=== PATIENT | male | born 1980 | race Caucasian/White ===

== ENCOUNTER 2022-03-18 14:20 | Emergency (ER) | payer BC, SELFPAY ==
[2022-03-18 15:08] VITALS: BP 155/99; PULSE 84; RESP 16; TEMP 36.9; O2SAT 98; BMI 25.6
--- NOTE | 2022-03-18 15:59 | ED_ITS ---
HPI - Skin/Abscess/Foreign Bdy General Chief complaint: Skin/Abscess/Foreign Body Stated complaint: Swollen L elbow Time Seen by Provider: 03/18/22 15:40 Source: patient Mode of arrival: ambulatory Limitations: no limitations History of Present Illness HPI narrative: 41-year-old male who is left-hand dominant presents with left elbow pain with redness and swelling. Patient tells me that he had a small scratch over the elbow which he noticed about a week ago but this seem fine until this morning when he woke up any notice pain with redness and swelling. No fevers or chills. Related Data Previous Rx's Medication Instructions Recorded cephalexin 500 mg capsule 500 mg PO BID #14 caps 03/18/22 doxycycline monohydrate 100 mg 100 mg PO BID #20 caps 03/18/22 capsule Allergies Allergy/AdvReac Type Severity Reaction Status Date / Time No Known Allergies Allergy Unverified 03/24/20 18:15 Review of Systems Review of Systems: Yes all other systems are reviewed and are negative Constitutional: Constitutional: Reports no additional constitutional complaints, Denies body ache(s), Denies chills, Denies fever(s), Denies headache(s) and Denies weakness Eyes: Eyes: Reports no additional eye complaints and Denies change in vision ENT: Reports system reviewed and no additional complaints, except as documented, Denies dizziness, Denies headache(s), Denies nasal congestion, Denies nasal discharge and Denies neck pain Cardiovascular: Cardiovascular: Reports no additional cardiovascular complaints, Denies chest pain, Denies leg edema and Denies dyspnea Respiratory: Respiratory: Reports no additional respiratory complaints, Denies cough and Denies dyspnea Gastrointestinal: Gastrointestinal: Reports no additional gastrointestinal complaints, Denies abdominal pain, Denies diarrhea, Denies nausea and Denies vomiting Genitourinary: Genitourinary: Denies urinary incontinence Musculoskeletal: Musculoskeletal: Reports no additional musculoskeletal complaints, Denies back pain, Reports arthralgias, Denies joint swelling, Denies neck pain, Denies numbness and Denies tingling Integumentary/Breasts: Skin/Breast: Reports system reviewed and no additional complaints, except as docu, Reports swelling, Reports erythema and Denies rash Neurologic: Reports system reviewed and no additional complaints, except as documented, Denies Abnormal speech present, Denies dizziness, Denies headache(s), Denies numbness, Denies tingling and Denies weakness PMF Past Medical History Attestation statement: The following information was validated with the patient. Source: old records reviewed and nursing notes reviewed Social History Social History Advance Directives: No Advance Directives Information Provided: Yes Physical Exam Vital Signs: Vital Signs: Last Vital Signs Temp 98.4 F 03/18/22 15:08 Pulse 84 03/18/22 15:08 Resp 16 03/18/22 15:08 BP 155/99 H 03/18/22 15:08 Pulse Ox 98 03/18/22 15:08 O2 Del Method 03/18/22 15:08 BMI result Body Mass Index 25.6 Const: General: cooperative, healthy appearing, comfortable and no acute distress Orientation/consciousness: patient oriented x3 Limitations: no limitations HEENT: Head: Yes normal to inspection Ears: hearing grossly normal bilaterally General nose exam: Normal external nose present Face and sinus: Yes normal facial exam Mouth: Normal oral and palatal mucosa present Throat: Yes posterior oropharynx normal Eyes: General: appearance normal, both eyes and all related structures Pupils: Equal, round and reactive pupils present Neck: Neck: Yes normal visual inspection Chest: Chest palpation & inspection: normal inspection of the chest Resp: Effort & Inspection: normal respiratory effort Auscultation: clear to auscultation bilaterally Cardio: Rate: regular rate Rhythm: regular rhythm Peripheral pulses: Peripheral pulses 2+ throughout GI: Inspection: Yes normal to inspection Palpation (GI): Soft to palpation and nontender Auscultation: normal bowel sounds Back/Spine/Pelvis: Thoracic/Lumbar Spine: thoracic and lumbar spine normal to inspection Skin: General skin exam: no rashes or lesions noted Neuro: General: patient oriented x3, no focal motor deficits and normal sensation to monofilament Cranial nerves: Yes Equal, round and reactive pupils present Cognition (Neuro): normal cognition Speech: No Abnormal speech present Gait exam (Neuro): Normal gait present Motor exam (neuro): 5/5 motor strength present throughout Extrem: Other: Patient has full range of motion of the elbow with no difficulty with extension or flexion. Palpable radial and ulnar pulses distally. Neurovascular intact distally to the affected area MDM - Skin/Abscess/Foreign Bdy MDM Narrative Medical decision making narrative: 41-year-old male left-hand dominant here with what appears to be septic bursitis of the left elbow. Patient has full range of motion so low concern for septic joint. I discussed the case with Anastasiya GRAFF from orthopedics. She recommended not performing any aspiration of the bursa or I&D. She did recommend placing the patient on oral antibiotics and follow-up with Orthopedics in the office. I reviewed strict return precautions with the patient in regards to septic joint. He is comfortable plan for discharge Medical Records Attestation: I reviewed the patient's medical records. Lab Data Attestation: I reviewed the patient's lab results. Discharge Plan Discharge Clinical Impression: Septic bursitis of elbow Patient Disposition: Home, Self-Care Instructions: Elbow Bursitis (ED) Additional Instructions: We spoke to the orthopedic on-call. They recommended you follow-up with them in the office the next week or 2 Call in the morning to set up an appointment Return for inability to extend the arm, 360 redness, fevers, chills Prescriptions: New cephalexin 500 mg capsule 500 mg PO BID Qty: 14 0RF doxycycline monohydrate 100 mg capsule 100 mg PO BID Qty: 20 0RF Referrals: [facility] [place] [facility] [Provider Group] - 1 week
== END 2022-03-18 16:25 | disposition home or self-care (01) ==
PROVIDERS: Emergency Provider Emergency Medicine
DX: M70.32 Other bursitis of elbow, left elbow (principal)
CPT/HCPCS: 99282

== ENCOUNTER 2022-11-03 10:11 | Emergency (ER) | payer BC, SELFPAY ==
--- NOTE | ~2022-11-03 | XR_ITS ---
EXAMINATION: XR CHEST CLINICAL INFORMATION: Chest pain COMPARISON: None available. TECHNIQUE: Frontal view of the chest was obtained. FINDINGS: Cardiac silhouette is normal in size. The lungs are well aerated. There is no lobar consolidation. No pleural effusion or pneumothorax. No gross osseous abnormality. XR/XR chest 1V IMPRESSION: No acute pulmonary pathology.
--- NOTE | 2022-11-03 10:12 | ECG_ITS ---
Test Reason : CP Blood Pressure : / mmHG Vent. Rate : 120 BPM Atrial Rate : 120 BPM P-R Int : 118 ms QRS Dur : 074 ms QT Int : 314 ms P-R-T Axes : 063 019 016 degrees QTc Int : 443 ms Sinus tachycardia Otherwise normal ECG No previous ECGs available Referred By: Generic ED Physician Electronically Signed By:Thomas Lott
[2022-11-03 10:18] VITALS: BP 156/114; PULSE 118; RESP 20; TEMP 36.8; O2SAT 100; BMI 25.8
[2022-11-03 10:37] LABS: Hematocrit 45.6 % (42.0-52.0); Hemoglobin 15.7 g/dl (14.0-18.0); Mean Corpuscular HGB Conc 34.4 g/dl (31.0-36.0); Mean Corpuscular Hemoglobin 31.8 pg (27.0-33.0); Mean Corpuscular Volume 92.5 fL (80.0-98.0); Mean Platelet Volume 11.1 fL (9.4-12.4); Platelet Count 181 X10*3/uL (160-400); Red Blood Count 4.93 X10*6/uL (4.60-5.80); Red Cell Distribution Width 11.7 % (11.0-16.0); White Blood Count 6.4 X10*3/uL (4.8-10.8)
[2022-11-03 10:38] VITALS: BP 143/103; PULSE 96; RESP 10; TEMP 36.4; O2SAT 98
--- NOTE | 2022-11-03 10:44 | ED_ITS ---
HPI - Chest Pain General Chief Complaint: Chest Pain Stated Complaint: chest pain numbness and sob Time Seen by Provider: 11/03/22 10:27 Source: patient and family (Spouse) Mode of arrival: ambulatory Limitations: no limitations History of Present Illness HPI narrative: 41-year-old male came in for evaluation of left-sided chest pain for. Patient started to have chest pain about a week ago which described as in termittent left-sided chest pain with radiation to the left with numbness to the left arm, no clear predisposing factor or exacerbating factors. Patient was working in the yard today felt chest pain after exertion associated with left arm numbness and shortness of breath them patient felt very anxious after. Stated that his job has been more stressful for the past week. Patient is a non smoker, declined family history of young or VT, no recent travel, no lower extremity swelling or tenderness, no history of PE or DVT. Related Data Previous Rx's Medication Instructions Recorded cephalexin 500 mg capsule 500 mg PO BID #14 caps 03/18/22 doxycycline monohydrate 100 mg 100 mg PO BID #20 caps 03/18/22 capsule Allergies Allergy/AdvReac Type Severity Reaction Status Date / Time No Known Allergies Allergy Unverified 03/24/20 18:15 Review of Systems Review of Systems: All other systems are reviewed and are negative Constitutional: Reports as per HPI and Reports no additional constitutional complaints Eyes: Reports as per HPI and Reports no additional eye complaints Reports system reviewed and no additional complaints, except as documented Cardiovascular: Reports as per HPI and Reports no additional cardiovascular complaints Respiratory: Reports as per HPI and Reports no additional respiratory complaints Gastrointestinal: Reports as per HPI and Reports no additional gastrointestinal complaints Genitourinary: Reports no additional female genitourinary complaints Musculoskeletal: Reports no additional musculoskeletal complaints Skin/Breast: Reports system reviewed and no additional complaints, except as docu Psychiatric: Reports no additional psychiatric complaints Endocrine: Reports no additional endocrine complaints Hematologic/Lymphatic: Reports no additional hematologic/lymphatic complaints Allergic/Immunologic: Reports no additional allergic/immunologic complaints Reports system reviewed and no additional complaints, except as documented and Reports Abnormal speech present [facility] Social History Social History Alcohol intake: current Alcohol intake frequency: a few times a week Smoked in Last 30 Days: No Use of substances other than those prescribed or required for medical reasons: No Advance Directives: No Advance Directives Information Provided: Yes Current occupational status: employed 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 Blood pressure elevated. Heart rate normal. Respiration rate normal. Temperature normal. Oxygen saturation normal. Appearance: Alert. Oriented X3. No acute distress. Head: Normal external exam. Normocephalic. Atraumatic. No Davidson signs noted. No raccoon eyes noted Eyes: PERRLA. EOMI. Conjunctiva and sclera normal. Eyelids normal. ENT: TM's Normal. Pharynx normal. Uvula midline. Moist mucous membranes. No trismus noted. No drooling noted. No muffled voice noted. Neck: Normal inspection. Neck supple. FROM. No adenopathy. Thyroid Normal. No meningeal signs. No neck mass noted. CVS: Normal heart rate and rhythm. Heart sound normal. No murmurs noted. Pulses normal throughout. Respiratory: No respiratory distress. Painless inspiration. Breath sounds normal. No wheezes/rales/rhonchi noted. Chest nontender. No accessory muscle usage noted or decreased air movement noted. Abdomen: Soft and nontender. Bowel sounds normal in all 4 quadrants. No distention noted. No organomegaly noted. No visible injury noted. Back: No CVA tenderness. Full range of motion noted. Skin: Skin warm and dry. Normal skin color. Normal skin turgor. No rashes/lesions/lacerations noted. Extremities: No lower extremity edema. Extremities exhibit normal range of motion. Extremities nontender. Neuro: Oriented X 3. Cranial nerve exam: II-XII are grossly intact No motor deficit. No sensory deficit. Reflexes normal. Medical Decision Making Medical Decision Making MDM Narrative: 41-year-old male presented with exertional chest pain for the past 7 days, the pain was significant today after having a yard work, HEART score is 2. Differential Diagnosis Differential Diagnoses: The differential diagnosis associated with the presentation includes (ACS, pneumonia, pneumothorax, PE.) Lab Data MDM Lab Attestation statement: I reviewed the patient's lab results. 11/03/22 10:32 11/03/22 10:32 Labs: Lab Results 11/03/22 11/03/22 11/03/22 Range/Units 10:32 10:32 10:32 WBC 6.4 (4.8-10.8) X10*3/uL RBC 4.93 (4.60-5.80) X10*6/uL Hgb 15.7 (14.0-18.0) g/dl Hct 45.6 (42.0-52.0) % MCV 92.5 (80.0-98.0) fL MCH 31.8 (27.0-33.0) pg MCHC 34.4 (31.0-36.0) g/dl RDW 11.7 (11.0-16.0) % Plt Count 181 (160-400) X10*3/uL MPV 11.1 (9.4-12.4) fL Absolute Nucleated RBC 0.000 (0.0-0.012) X10*3/uL Nucleated RBC % (auto) 0.0 (0.0-0.2) /100WBC D-Dimer High Sensitivty NG/ML Sodium 141 (135-145) mmol/L Potassium 4.7 (3.3-5.1) mmol/L Chloride 102 (96-108) mmol/L Carbon Dioxide 29 (22-29) mmol/L Anion Gap 15 (12-20) BUN 16 (9-16) mg/dL Creatinine 1.01 (0.5-1.4) mg/dL Estim Creat Clear Calc 100.3 Estimated GFR > 60 Random Glucose 107 (60-115) mg/dL Calcium 10.1 (8.4-10.2) mg/dL Troponin I High Sens < 2.7 (<3.5-35.0) ng/L 11/03/22 11/03/22 Range/Units 12:01 12:16 WBC (4.8-10.8) X10*3/uL RBC (4.60-5.80) X10*6/uL Hgb (14.0-18.0) g/dl Hct (42.0-52.0) % MCV (80.0-98.0) fL MCH (27.0-33.0) pg MCHC (31.0-36.0) g/dl RDW (11.0-16.0) % Plt Count (160-400) X10*3/uL MPV (9.4-12.4) fL Absolute Nucleated RBC (0.0-0.012) X10*3/uL Nucleated RBC % (auto) (0.0-0.2) /100WBC D-Dimer High Sensitivty < 150 NG/ML Sodium (135-145) mmol/L Potassium (3.3-5.1) mmol/L Chloride (96-108) mmol/L Carbon Dioxide (22-29) mmol/L Anion Gap (12-20) BUN (9-16) mg/dL Creatinine (0.5-1.4) mg/dL Estim Creat Clear Calc Estimated GFR Random Glucose (60-115) mg/dL Calcium (8.4-10.2) mg/dL Troponin I High Sens < 2.7 (<3.5-35.0) ng/L Independent Interpretation I performed an independent interpretation of an: EKG and Plain X-Ray (No acute intrathoracic pathology.) Interpretation: Sinus tachycardia at 120 beats per minutes, normal intervals, no ST-T changes. Radiology Impression Discussion of test interpretation with radiology: I have reviewed the radiologist's reading. Discharge Plan Discharge Clinical Impression: Chest pain Patient Disposition: Home, Self-Care Instructions: Chest Pain (ED) Prescriptions: No Action cephalexin 500 mg capsule 500 mg PO BID Qty: 14 0RF doxycycline monohydrate 100 mg capsule 100 mg PO BID Qty: 20 0RF Referrals: Abbe Sanchez MD [Physician] -
[2022-11-03 10:51] LABS: Anion Gap 15 (12-20); Blood Urea Nitrogen 16 mg/dL (9-16); Calcium 10.1 mg/dL (8.4-10.2); Carbon Dioxide 29 mmol/L (22-29); Chloride 102 mmol/L (96-108); Creatinine Clr Calc Pharmacy 100.3; Estimated Glomerular Filt Rate > 60; Glucose Random 107 mg/dL (60-115); Potassium 4.7 mmol/L (3.3-5.1); Sodium 141 mmol/L (135-145)
[2022-11-03 11:09] LABS: Troponin-I High Sensitivity < 2.7 ng/L (<3.5-35.0)
[2022-11-03 11:31] VITALS: BP 133/97; PULSE 80; RESP 13; TEMP 36.4; O2SAT 99
[2022-11-03 11:34] VITALS: PULSE 78
[2022-11-03 12:02] VITALS: BP 151/100; PULSE 82; RESP 13; TEMP 36.4; O2SAT 99
[2022-11-03 12:40] LABS: D Dimer High Sensitivity < 150 NG/ML
== END 2022-11-03 13:35 | disposition home or self-care (01) ==
PROVIDERS: Emergency Provider Emergency Medicine
DX: R07.9 Chest pain, unspecified (principal); R00.0 Tachycardia, unspecified; Z79.899 Other long term (current) drug therapy
CPT/HCPCS: 36415; 71045; 80048; 84484; 85027; 85379; 93005; 99283; 99285

== ENCOUNTER → 2022-12-12 13:51 | Outpatient (BNVA) | payer BC, SELFPAY | PROVIDERS: PCP Nurse Practitioner Family; Referring Provider Nurse Practitioner Family; Visit Provider Internal Medicine Cardiovascular Disease | DX: R07.9 Chest pain, unspecified (principal) | CPT/HCPCS: 93005 ==

== ENCOUNTER 2023-01-11 06:30 | Outpatient (REF) | payer BC, SELFPAY | END 2023-01-11 06:31 | disposition home or self-care (01) | LOC: HO.LAB 06:30 | PROVIDERS: PCP Nurse Practitioner Family; Visit Provider Nurse Practitioner Family | DX: Z76.89 Persons encountering health services in other specified circumstances (principal); Z20.2 Contact with and (suspected) exposure to infections with a predominantly sexual mode of transmission; E78.1 Pure hyperglyceridemia; R73.01 Impaired fasting glucose; R03.0 Elevated blood-pressure reading, without diagnosis of hypertension | CPT/HCPCS: 36415; 80053; 80061; 82306; 82607; 82746; 84443; 85025 ==

== ENCOUNTER → 2023-01-14 08:15 | Outpatient (REF) | payer BC, SELFPAY ==
--- NOTE | 2023-01-14 08:17 | CA_ITS ---
Acquisition Time: 2023-01-14 08:56:29 Total Exercise Time: 00:09:01 Test Indications: CP Medications: SEE H Protocol: UMM Max HR: 169 BPM 94% of Pred: 179 BPM Max BP: 184/084 mmHG Max Work Load: 10.1 METS Exercise stress test exercise 9 min 1 sec of Umm protocol achieivntg 94% MPHR, without anginal symptoms, without arrhythmias, with normotensive response to exericse, without EKG changes. Test reviewed with Dr. Teixeira. Referred By: Thomas Lott Overread By: LAINA TEIXEIRA
== END ==
LOC: HO.CARD 08:15
PROVIDERS: PCP Nurse Practitioner Family; Visit Provider Internal Medicine Cardiovascular Disease
DX: R07.9 Chest pain, unspecified (principal)
CPT/HCPCS: 93017

== ENCOUNTER → 2023-01-14 08:17 | Outpatient (BNV) | payer BC, SELFPAY | PROVIDERS: PCP Nurse Practitioner Family; Visit Provider Internal Medicine | DX: R07.9 Chest pain, unspecified (principal) | CPT/HCPCS: 93016; 93018 ==

== ENCOUNTER 2023-01-22 10:47 | Outpatient (AMB) | payer BC, SELFPAY ==
[2023-01-22 10:52] VITALS: BP 130/72; PULSE 72; O2SAT 99; BMI 27.0
--- NOTE | 2023-01-22 10:52 | MHC.PC.OV ---
Vital Signs 01/22/23 10:52 Height 5 ft 10 in Weight 188 lb BMI 27.0 BP 130/72 Blood Pressure Location Lt brachial Position Sitting Pulse 72 Pulse Source Pulse Oximeter Temp Source Skin Pulse Oximetry (%) 99 Oxygen Delivery Method Room Air Intake Visit Reasons: pe Intake Note: Patient is here today for a physical. 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 Medical history significant for gout-diet controlled, overweight, elevated fasting glucose, hypertriglyceridemia. Recent blood work results reviewed with the patient as well. Patient will call for an eye exam. Patient would like to hold off on tetanus vaccine. Patient denies shortness of breath or chest pain. 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 1. Little interest or pleasure in doing things: not at all 2. Feeling down, depressed, or hopeless: not at all 3. Trouble falling or staying asleep, or sleeping too much: not at all 4. Feeling tired or having little energy: not at all 5. Poor appetite or overeating: not at all 6. Feeling bad about yourself - or that you are a failure or have let yourself or your family down: not at all 7. Trouble concentrating on things, such as reading the newspaper or watching television: not at all 8. Moving or speaking so slowly that other people could have noticed. Or the opposite - being so fidgety or restless that you have been moving around a lot more than usual: not at all 9. Thoughts that you would be better off or of hurting yourself in some way: not at all Total score: 0 Depression Screening Interpretation: Negative 06647 - PHQ-9 Billing: Yes Source: Developed by Drs. Cesar Walker, Roopa Eid, Abraham Ocampo and colleagues, with an educational paula from [email or web address]. Thrive Questionnaire Date Thrive assessed: 01/22/23 I am a: Patient What is your living situation today?: I have a steady place to live Within the past 12 months, did the food you bought not last and you didn't have the money to get more?: Never true Within the past 12 months, did you worry whether your food would run out before you got money to buy more?: Never true Do you have trouble paying for medicines?: No Do you have trouble getting transportation to medical appointments?: No Do you have trouble paying your heating and electricity bill?: No Do you have trouble taking care of your child, family member or friend?: No Do you have trouble with day-to-day activities such as bathing, preparing meals, shopping, managing finances, etc.?: No Are you currently unemployed and looking for a job?: No Are you interested in more education?: No Currently or been in a relationship where the following occur: no concerns reported AUDIT C Alcohol Use Questionnaire (AUDIT-C) 1. How often do you have a drink containing alcohol?: 2-3 times a week 2. How many drinks containing alcohol do you have on a typical day when you are drinking?: 1 or 2 3. How often do you have six or more drinks on one occasion?: Never Total Score: 3 Score Reviewed/Action Taken: No TOMMY-7 AMB Questionnaire TOMMY-7 Date TOMMY - 7 assessed: 11/21/22 Feeling nervous, anxious, or on edge: 0 = Not at all Not being able to stop or control worryin = Not at all Worrying too much about different things: 0 = Not at all Trouble relaxin = Not at all Being so restless that it is hard to sit still: 0 = Not at all Becoming easily annoyed or irritable: 0 = Not at all Feeling afraid as if something awful might happen: 0 = Not at all Total TOMMY-7 score (0-4 normal; 5-9 mild; 10-14 moderate; 15-21 severe): 0 Source: Developed by Drs. Cesar Walker, Roopa Eid, Abraham Ocampo and colleagues, with an educational paula from [email or web address]. TOMMY-7 Assessment Billing TOMMY-7 Assessment Tool: TOMMY-7 Assessment 72245 Review of Systems Const Denies body aches, Denies chills, Denies fever(s) and Denies headache(s) Eyes Denies change in vision ENT Denies dizziness, Denies otalgia, Denies headache(s), Denies nasal discharge, Denies sinus pain and Denies sore throat Card Denies chest pain, Denies edema, Denies lightheadedness and Denies dyspnea Resp Denies cough and Denies dyspnea GI Denies constipation, Denies diarrhea, Denies nausea and Denies vomiting Denies dysuria Musc Denies myalgias, Denies numbness and Denies tingling Skin/Breast Denies rash Neuro Denies dizziness, Denies headache(s), Denies numbness and Denies tingling Physical exam (Primary Care) Vital Signs: Last Vital Signs Pulse 72 01/22/23 10:52 BP 130/72 01/22/23 10:52 Pulse Ox 99 01/22/23 10:52 Oxygen Delivery Method Room Air 01/22/23 10:52 BMI result Body Mass Index 27.0 Tobacco/Smoking Status: Tobacco use Status Tobacco use date assessed 01/22/23 01/22/23 10:53 Patient Tobacco Use Status Former Tobacco user 01/22/23 10:53 PHQ-9: PHQ-9 Score PHQ-9: Total score 0 01/22/23 11:01 Depression Screening Interpretation: Negative Thrive Assessment: Date of Thrive Assessment Date Thrive assessed 01/22/23 01/22/23 10:53 Currently or been in a relationship where the following occur: no concerns reported Const General: cooperative and no acute distress Orientation/consciousness: patient oriented x3 HENMT Head: Yes normocephalic and Yes atraumatic Ears: TM's normal bilaterally Face and sinus: Yes sinuses nontender Mouth: oropharynx normal and moist mucous membranes Throat: Yes posterior oropharynx normal Eyes General: appearance normal, both eyes and all related structures Pupils: Equal, round and reactive pupils present EOM: EOMs intact bilaterally Neck Neck: Yes normal visual inspection, Yes full ROM and Yes no lymphadenopathy Thyroid: Thyroid normal Resp Effort & Inspection: normal respiratory effort and able to speak in complete sentences Auscultation: clear to auscultation bilaterally, no crackles, no rales, no rhonchi and no wheezes Cardio Rate: regular rate Rhythm: regular rhythm Heart sounds: S1 normal heart sound present, S2 normal heart sound present and no murmurs GI Palpation (GI): Soft to palpation, not firm, nontender, no guarding, not rigid and no hepatosplenomegaly Auscultation: normal bowel sounds General: No CVA tenderness Back/Spine/Pelvis Back: No CVA tenderness Skin General skin exam: no rashes or lesions noted Neuro General: patient oriented x3 Cranial nerves: Yes Equal, round and reactive pupils present Gait exam (Neuro): Normal gait present Extrem General: Yes full ROM and No edema Assessment and Plan Assessment & Plan (1) Hypertriglyceridemia: Code(s): E78.1 - Pure hyperglyceridemia Plan: Triglycerides 239 01/2023 Encouraged low-cholesterol and low-carbohydrate diet Will recheck in 3 months (2) Elevated fasting glucose: Code(s): R73.01 - Impaired fasting glucose Plan: Fasting glucose 113 01/2023 Patient has order for A1c (3) Overweight (BMI 25.0-29.9): Code(s): E66.3 - Overweight Plan: Healthy food choices and exercise as tolerated (4) Adult general medical exam: Code(s): Z00.00 - Encounter for general adult medical examination without abnormal findings Plan: Repeat in 1 year Orders: Orders Lipid Panel 3 Months E78.1 - Pure hyperglyceridemia Coding Level of Care Code Est Pt Prev Care 40-64y(98041) Diagnoses Hypertriglyceridemia E78.1 Elevated fasting glucose R73.01 Overweight (BMI 25.0-29.9) E66.3 Adult general medical exam Z00.00 Additional Codes TOMMY-7 Assessment Billing - TOMMY-7 Assessment Tool: TOMMY-7 Assessment 59029 ([id number])
== END 2023-01-22 11:27 | disposition home or self-care (01) ==
PROVIDERS: PCP Nurse Practitioner Family; Visit Provider Nurse Practitioner Family
DX: E78.1 Pure hyperglyceridemia (principal); R73.01 Impaired fasting glucose; E66.3 Overweight; Z00.00 Encounter for general adult medical examination without abnormal findings
CPT/HCPCS: 99396

== ENCOUNTER 2023-06-05 06:45 | Outpatient (REF) | payer BC, SELFPAY ==
[2023-06-05 07:43] LABS: Estimated Average Glucose 105 mg/dL; Hemoglobin A1c % 5.3 % (<6.0)
[2023-06-05 08:10] LABS: Cholesterol 232 mg/dL (<200); HDL Cholesterol 92 mg/dL (>40); LDL Cholesterol Calculated 122 mg/dL (<100); Triglycerides 93 mg/dL (<150); Uric Acid 7.5 mg/dL (3.4-7.0)
== END 2023-06-05 06:46 | disposition home or self-care (01) ==
LOC: HO.LAB 06:45
PROVIDERS: PCP Nurse Practitioner Family; Visit Provider Nurse Practitioner Family
DX: R73.01 Impaired fasting glucose (principal); E78.1 Pure hyperglyceridemia; M10.9 Gout, unspecified
CPT/HCPCS: 36415; 80061; 83036; 84550

== ENCOUNTER 2023-08-06 10:28 | Outpatient (AMB) | payer BC, SELFPAY ==
[2023-08-06 10:32] VITALS: BP 126/80; PULSE 75; O2SAT 100; BMI 26.7
--- NOTE | 2023-08-06 10:32 | A.OFFPC_ITS ---
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 Accompanied by: Self / Same As Patient Allergies No Known Allergies Allergy (Verified 08/06/23 10:59) Medication List - Last Reconciled 08/06/23 by Zan Gonzales MD indomethacin 50 mg PO TID PRN prednisone 10 mg PO DAILY Tobacco use date assessed: 08/06/23 Dental Screening Dental Screen Date: 08/06/23 Did you have a dental visit in the last 12 months?: Yes Did you have a dental problem in the last 6 months where you did not have access to dental care?: No Was dental information given to patient?: Patient has dentist HPI GOUT flare up HPI Details 42-year-old male presents to the office for a sick visit. His primary care provider is not available. Patient gives history of chronic gout for which he was taking allopurinol on a regular basis. Two years ago he changed his dietary habits and had not to use allopurinol since then. Last , patient had a flare-up of acute gout. It was very painful and lasted for 4 weeks. He got relief with prednisone. In the past few days he is having tingling sensation in the left foot. He has no medication remaining at home and would like to have a refill on the same. 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 1. Little interest or pleasure in doing things: not at all 2. Feeling down, depressed, or hopeless: not at all 3. Trouble falling or staying asleep, or sleeping too much: not at all 4. Feeling tired or having little energy: not at all 5. Poor appetite or overeating: not at all 6. Feeling bad about yourself - or that you are a failure or have let yourself or your family down: not at all 7. Trouble concentrating on things, such as reading the newspaper or watching television: not at all 8. Moving or speaking so slowly that other people could have noticed. Or the opposite - being so fidgety or restless that you have been moving around a lot more than usual: not at all 9. Thoughts that you would be better off or of hurting yourself in some way: not at all Total score: 0 Depression Screening Interpretation: Negative Depression Screening Done: Yes [id number] - PHQ-9 Billing: Yes Source: Developed by Drs. Cesar Walker, Roopa Eid, Abraham Ocampo and colleagues, with an educational paula from [employer]. Thrive Questionnaire Date Thrive assessed: 08/06/23 I am a: Patient What is your living situation today?: I have a steady place to live Within the past 12 months, did the food you bought not last and you didn't have the money to get more?: Never true Within the past 12 months, did you worry whether your food would run out before you got money to buy more?: Never true Do you have trouble paying for medicines?: No Do you have trouble getting transportation to medical appointments?: No Do you have trouble paying your heating and electricity bill?: No Do you have trouble taking care of your child, family member or friend?: No Do you have trouble with day-to-day activities such as bathing, preparing meals, shopping, managing finances, etc.?: No Are you currently unemployed and looking for a job?: No Are you interested in more education?: No Please select the resources that you would like help with: None THRIVE Score: 0 AUDIT C Alcohol Use Questionnaire (AUDIT-C) 1. How often do you have a drink containing alcohol?: 2-3 times a week 2. How many drinks containing alcohol do you have on a typical day when you are drinking?: 1 or 2 3. How often do you have six or more drinks on one occasion?: Never Total Score: 3 Score Reviewed/Action Taken: No TOMMY-7 AMB Questionnaire TOMMY-7 Date TOMMY - 7 assessed: 08/06/23 Feeling nervous, anxious, or on edge: 0 = Not at all Not being able to stop or control worryin = Not at all Worrying too much about different things: 0 = Not at all Trouble relaxin = Not at all Being so restless that it is hard to sit still: 0 = Not at all Becoming easily annoyed or irritable: 0 = Not at all Feeling afraid as if something awful might happen: 0 = Not at all Total TOMMY-7 score (0-4 normal; 5-9 mild; 10-14 moderate; 15-21 severe): 0 Source: Developed by Drs. Cesar Walker, Roopa Eid, Abraham Ocampo and colleagues, with an educational paula from [employer]. Physical exam (Primary Care) Vital Signs: Last Vital Signs Pulse 75 08/06/23 10:32 BP 126/80 08/06/23 10:32 Pulse Ox 100 08/06/23 10:32 Oxygen Delivery Method Room Air 08/06/23 10:32 BMI result Body Mass Index 26.7 Tobacco/Smoking Status: Tobacco use Status Tobacco use date assessed 08/06/23 08/06/23 10:37 Patient Tobacco Use Status Former Tobacco user 08/06/23 10:37 PHQ-9: PHQ-9 Score PHQ-9: Total score 0 08/06/23 10:37 Depression Screening Interpretation: Negative Thrive Assessment: Date of Thrive Assessment Date Thrive assessed 08/06/23 08/06/23 10:37 Extrem Other: Left foot: Minimal discomfort at the MTP joint. No overlying erythema. Right foot: Great toe: No visible erythema. No tenderness. Assessment and Plan Assessment & Plan (1) Gout: Comment: stable with diet Code(s): M10.9 - Gout, unspecified Plan: Allopurinol and prednisone called in. Patient was instructed to take the prednisone should the pain symptoms begin or get worse. Allopurinol to be started after complete recovery from the acute attack. Coding Level of Care Code Est Pt Level 4 (24352) Diagnoses Gout M10.9
== END 2023-08-06 10:49 | disposition home or self-care (01) ==
PROVIDERS: PCP Nurse Practitioner Family; Visit Provider Internal Medicine
DX: M10.9 Gout, unspecified (principal)
CPT/HCPCS: 99214

== ENCOUNTER 2023-10-10 12:39 | Outpatient (AMB) | payer BC, SELFPAY ==
[2023-10-10 12:41] VITALS: BP 118/72; PULSE 92; O2SAT 98; BMI 27.0
--- NOTE | 2023-10-10 12:41 | MHC.PC.OV ---
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 Allergies No Known Allergies Allergy (Verified 10/10/23 12:41) Medication List - Last Reconciled 10/10/23 by Charito Monte MD allopurinol 300 mg PO DAILY ascorbate calcium (vitamin C) 1 g PO DAILY prednisone 10 mg PO DAILY Tobacco use date assessed: 10/10/23 Dental Screening Dental Screen Date: 08/06/23 Did you have a dental visit in the last 12 months?: Yes Did you have a dental problem in the last 6 months where you did not have access to dental care?: No Was dental information given to patient?: Patient has dentist HPI Transfer care/ Gout Follow up HPI Details 42-year-old overweight male with a history of gout hypercholesterolemia coming in for the 1st time. Patient was seen by my colleague in July 2023 for flare-up of the gout talk allopurinol and has change diet and has not use the medication. Patient was placed back on allopurinol. R big toe problem - but this time L big toe. meat eater and so knows triggers PFSH Medical History (Updated 10/10/23 @ 13:17 by Charito Monte MD) Elevated blood pressure reading Hypertriglyceridemia Encounter to establish care Septic olecranon bursitis of left elbow Surgical History No pertinent past surgical history Family History Mother Hypertension Father Hypertension Diabetes Social History (Updated 10/10/23 @ 13:18 by Charito Monte MD) Alcohol intake: current Alcohol intake frequency: a few times a week Comment: 3 x a week 2-3drinks Patient Tobacco Use Status: Former Tobacco user Quit Date: 2020 Years Smoked: 10 +/- quit 2020- 10 years 1/2 pack a day service: No Current occupational status: employed 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 How often do you have a drink containing alcohol?: 2-3 times a week 2. How many drinks containing alcohol do you have on a typical day when you are drinking?: 1 or 2 3. How often do you have six or more drinks on one occasion?: Never Total Score: 3 Score Reviewed/Action Taken: No TOMMY-7 AMB Questionnaire TOMMY-7 Date TOMMY - 7 assessed: 08/06/23 Source: Developed by Drs. Cesar Walker, Roopa Eid, Abraham Ocampo and colleagues, with an educational paula from [employer]. Physical exam (Primary Care) Vital Signs: Last Vital Signs Pulse 92 10/10/23 12:41 BP 118/72 10/10/23 12:41 Pulse Ox 98 10/10/23 12:41 Oxygen Delivery Method Room Air 10/10/23 12:41 BMI result Body Mass Index 27.0 Tobacco/Smoking Status: Tobacco use Status Tobacco use date assessed 10/10/23 10/10/23 12:42 Patient Tobacco Use Status Former Tobacco user 10/10/23 13:18 Thrive Assessment: Date of Thrive Assessment Date Thrive assessed 08/06/23 10/10/23 12:42 Const General: alert; No acute distress Eyes Conjunctivae: conjunctivae normal Resp Auscultation: clear to auscultation bilaterally Cardio Rate: regular rate Rhythm: regular rhythm GI Inspection: Yes normal to inspection Extrem General: Yes normal to inspection and No edema Immunizations tetanus-diphtheria toxoids-Td 2 Lf unit-2 Lf unit/0.5 mL IM suspension Performing Provider: Charito Monte MD 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 0.5 mL IM Left Deltoid 0.5 mL [id number] 08/17/24 [address]-2 [employer] VIS Given Date VIS Provided VIS Publication Date 10/10/23 Single Vaccine 21 Eligibility Eligibility Date Funding Source Not VFC Eligible 10/10/23 State funds Assessment and Plan Assessment & Plan (1) Overweight (BMI 25.0-29.9): Code(s): E66.3 - Overweight Plan: Diet and exercise (2) Gout: Comment: stable with diet Code(s): M10.9 - Gout, unspecified Plan: Keep well hydrated, low purine diet (3) Elevated fasting glucose: Code(s): R73.01 - Impaired fasting glucose Plan: Decrease the amount of carbohydrate intake, pasta, bread, rice and potatoes are all sugar and that is aside from all the sweet stuff, remember that fruits are good but they are Sweet also. Orders: Orders Complete Blood Count Auto Diff Today R73.01 - Impaired fasting glucose Lipid Panel Today E78.00 - Pure hypercholesterolemia, unspecified, R73.01 - Impaired fasting glucose Vitamin B12 and Folate Today R73.01 - Impaired fasting glucose Td State Immunization Today Z23 - Encounter for immunization Comprehensive Met. Panel Today R73.01 - Impaired fasting glucose Uric Acid Today R73.01 - Impaired fasting glucose Free T4 (Free Thyroxine) Today R73.01 - Impaired fasting glucose Thyroid Stimulating Hormone Today R73.01 - Impaired fasting glucose Medications: New tetanus-diphtheria toxoids-Td 0.5 mL IM ONCE 0.5 mL 0RF Z23 - Encounter for immunization Refilled allopurinol 300 mg PO DAILY 90 tabs 3RF R73.01 - Impaired fasting glucose prednisone Take 3 tablets for 3 days then, Take 2 tablets 3 days then, Take 1 tablet 3 days and stop 10 mg PO DAILY 18 tabs 0RF M10.9 - Gout, unspecified Coding Level of Care Code Est Pt Level 4 (46121) Diagnoses Overweight (BMI 25.0-29.9) E66.3 Gout M10.9 Elevated fasting glucose R73.01
== END 2023-10-10 13:40 | disposition home or self-care (01) ==
PROVIDERS: PCP Nurse Practitioner Family; Visit Provider Internal Medicine
DX: E66.3 Overweight (principal); M10.9 Gout, unspecified; R73.01 Impaired fasting glucose; Z23 Encounter for immunization
CPT/HCPCS: 90471; 90714; 99214

== ENCOUNTER 2023-10-11 06:35 | Outpatient (REF) | payer BC, SELFPAY ==
[2023-10-11 06:43] LABS: MANUAL DIFF FLAG NO
[2023-10-11 07:02] LABS: Basophils Percent Auto 0.6 % (0-2); Eosinophils Absolute Auto 0.1 X10*3/uL (0.0-0.4); Eosinophils Percent Auto 1.7 % (0-4); Hematocrit 46.7 % (42.0-52.0); Hemoglobin 15.6 g/dl (14.0-18.0); Imm Gran Abs Auto 0.02 X10*3/uL (0.00-0.03); Imm Gran Pct Auto 0.3 % (0.0-0.4); Lymphocytes Absolute Auto 2.9 X10*3/uL (1.2-4.9); Lymphocytes Percent Auto 43.5 % (20-40); Mean Corpuscular HGB Conc 33.4 g/dl (31.0-36.0); Mean Corpuscular Hemoglobin 31.8 pg (27.0-33.0); Mean Corpuscular Volume 95.1 fL (80.0-98.0); Mean Platelet Volume 10.9 fL (9.4-12.4); Monocytes Absolute Auto 0.5 X10*3/uL (0.1-1.2); Monocytes Percent Auto 7.2 % (2-11); Neutrophils Absolute Auto 3.1 x10*3/uL (2.0-8.3); Neutrophils Percent Auto 46.7 % (45-73); Platelet Count 226 X10*3/uL (160-400); Red Blood Count 4.91 X10*6/uL (4.60-5.80); Red Cell Distribution Width 12.1 % (11.0-16.0); White Blood Count 6.6 X10*3/uL (4.8-10.8)
[2023-10-11 07:25] LABS: Alanine Aminotransferase 32 U/L (0-40); Albumin Level 4.4 g/dL (3.5-5.0); Alkaline Phosphatase 41 U/L (39-117); Anion Gap 14 (12-20); Aspartate Amino Transferase 17 U/L (5-37); Bilirubin Total 0.3 mg/dL (0.0-1.0); Blood Urea Nitrogen 19 mg/dL (9-16); Calcium 9.6 mg/dL (8.4-10.2); Carbon Dioxide 31 mmol/L (22-29); Chloride 102 mmol/L (96-108); Cholesterol 209 mg/dL (<200); Estimated Glomerular Filt Rate > 60; Glucose Random 99 mg/dL (60-115); HDL Cholesterol 66 mg/dL (>40); LDL Cholesterol Calculated 74 mg/dL (<100); Potassium 4.9 mmol/L (3.3-5.1); Sodium 142 mmol/L (135-145); Total Protein 7.3 g/dL (6.5-8.0); Triglycerides 347 mg/dL (<150); Uric Acid 5.3 mg/dL (3.4-7.0)
[2023-10-11 07:43] LABS: Free T4 (Free Thyroxine) 1.13 ng/dL (0.71-1.85); Thyroid Stimulating Hormone 1.91 uIU/mL (0.32-4.0)
[2023-10-11 07:51] LABS: Vitamin B12 921 pg/mL (200-900)
== END 2023-10-11 06:36 | disposition home or self-care (01) ==
LOC: HO.LAB 06:35
PROVIDERS: PCP Internal Medicine; Visit Provider Internal Medicine
DX: E78.00 Pure hypercholesterolemia, unspecified (principal); R73.01 Impaired fasting glucose
CPT/HCPCS: 36415; 80053; 80061; 82607; 82746; 84439; 84443; 84550; 85025

== ENCOUNTER 2023-12-03 08:07 | Outpatient (AMB) | payer BC, SELFPAY ==
--- NOTE | 2023-12-03 08:40 | MHC.PC.OV ---
Vital Signs 12/03/23 08:42 Height 5 ft 10 in Weight 189 lb 6 oz BMI 27.2 BP 130/70 Blood Pressure Location Lt brachial Position Sitting Pulse 65 Pulse Source Pulse Oximeter Pulse Oximetry (%) 98 Oxygen Delivery Method Room Air Intake Visit Reasons: Follow up from return of Gout flare up Intake Note: Patient is here to follow up on Gout flare up. 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 10/26/2023 last seen [facility] Medical History (Updated 12/03/23 @ 09:08 by Charito Monte MD) Hypertriglyceridemia Elevated blood pressure reading Encounter to establish care Septic olecranon bursitis of left elbow Surgical History No pertinent past surgical history Family History (Updated 12/03/23 @ 08:41 by NATASHA Gupta) Mother Hypertension Father Hypertension Diabetes Social History Alcohol intake: current Alcohol intake frequency: a few times a week Comment: 3 x a week 2-3drinks Patient Tobacco Use Status: Former Tobacco user Quit Date: 2020 Years Smoked: 10 +/- quit 2020- 10 years 1/2 pack a day e-Cigarette/Vaping Use: Never Used Second Hand Smoke Exposure: Yes service: No Current occupational status: employed 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 Cesar Walker, Roopa Eid, Abraham Ocampo and colleagues, with an educational paula from [employer]. Physical exam (Primary Care) Vital Signs: Last Vital Signs Pulse 65 12/03/23 08:42 BP 130/70 12/03/23 08:42 Pulse Ox 98 05/28/24 08:42 Oxygen Delivery Method Room Air 12/03/23 08:42 BMI result Body Mass Index 27.2 Tobacco/Smoking Status: Tobacco use Status Tobacco use date assessed 12/03/23 12/03/23 08:46 Patient Tobacco Use Status Former Tobacco user 12/03/23 08:46 e-Cigarette/Vaping Use Never Used 12/03/23 08:46 Thrive Assessment: Date of Thrive Assessment Date Thrive assessed 08/06/23 12/03/23 08:46 Const General: alert; No acute distress Eyes Conjunctivae: conjunctivae normal Resp Auscultation: clear to auscultation bilaterally Cardio Rate: regular rate Rhythm: regular rhythm GI Inspection: Yes normal to inspection Extrem General: Yes normal to inspection and No edema Assessment and Plan Assessment & Plan (1) Overweight (BMI 25.0-29.9): Code(s): E66.3 - Overweight Plan: Diet and exercise (2) Gout: Comment: stable with diet Code(s): M10.9 - Gout, unspecified Plan: Low purine diet and keep well hydrated on allopurinol 300 mg once a day and colchicine. Last uric acid normal since patient has been having a lot of the pain even with allopurinol their colchicine has been prescribed advised to get the x-ray done and will follow-up on this. (3) Elevated fasting glucose: Code(s): R73.01 - Impaired fasting glucose Plan: Decrease the amount of carbohydrate intake, pasta, bread, rice and potatoes are all sugar and that is aside from all the sweet stuff, remember that fruits are good but they are Sweet also. (4) Hypertriglyceridemia: Code(s): E78.1 - Pure hyperglyceridemia Plan: Avoid fried foods, chicken skin, eggs, butter margarine, pastries and meat. Be it pork or beef they have a lot of cholesterol LDL goal of less than 130 and triglyceride of less than 150. Patient declines any new medication. (5) Great toe pain: Comment: left Code(s): M79.676 - Pain in unspecified toe(s) Plan: X-ray of the toes requested Orders: Orders XR toe LT min 2V Today M79.676 - Pain in unspecified toe(s) Medications: Refilled prednisone Take 3 tablets for 3 days then, Take 2 tablets 3 days then, Take 1 tablet 3 days and stop 10 mg PO DAILY 18 tabs 0RF M10.9 - Gout, unspecified Coding Level of Care Code Est Pt Level 4 (51809) Diagnoses Overweight (BMI 25.0-29.9) E66.3 Gout M10.9 Elevated fasting glucose R73.01 Hypertriglyceridemia E78.1 Great toe pain M79.676
[2023-12-03 08:42] VITALS: BP 130/70; PULSE 65; O2SAT 98; BMI 27.2
== END 2023-12-03 09:13 | disposition home or self-care (01) ==
PROVIDERS: PCP Internal Medicine; Visit Provider Internal Medicine
DX: E66.3 Overweight (principal); M10.9 Gout, unspecified; R73.01 Impaired fasting glucose; E78.1 Pure hyperglyceridemia; M79.676 Pain in unspecified toe(s)
CPT/HCPCS: 99214

== ENCOUNTER 2023-12-03 09:21 | Outpatient (REF) | payer BC, SELFPAY ==
--- NOTE | ~2023-12-03 | XR_ITS ---
EXAMINATION: XR TOES, LEFT CLINICAL INFORMATION: Pain in unspecified toe. COMPARISON: None available. TECHNIQUE: 3 views of the left great toe were obtained. FINDINGS: Radiopaque marker placed by technologist to indicate the area of concern as indicated by the patient along the medial aspect of the first metatarsophalangeal joint. 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 Mild degenerative changes in the first tarsometatarsal joint. IP joint of the great toe is preserved. 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
== END 2023-12-03 09:22 | disposition home or self-care (01) ==
LOC: HO.XRAY 09:21
PROVIDERS: PCP Internal Medicine; Visit Provider Internal Medicine
DX: M79.672 Pain in left foot (principal)
CPT/HCPCS: 73660

== ENCOUNTER 2024-02-26 08:14 | Outpatient (AMB) | payer BC, SELFPAY ==
[2024-02-26 08:17] VITALS: BP 124/88; PULSE 78; O2SAT 97; BMI 27.0
--- NOTE | 2024-02-26 08:17 | A.OFFPC_ITS ---
Vital Signs 02/26/24 08:17 Height 5 ft 10 in Weight 188 lb BMI 27.0 BP 124/88 Blood Pressure Location Lt brachial Position Sitting Pulse 78 Pulse Source Pulse Oximeter Pulse Oximetry (%) 97 Oxygen Delivery Method Room Air Intake Visit Reasons: PE Allergies No Known Allergies Allergy (Verified 02/26/24 08:21) Medication List - Last Reconciled 02/26/24 by Charito Monte MD allopurinol 300 mg PO DAILY ascorbate calcium (vitamin C) 1 g PO DAILY colchicine 0.6 mg PO DAILY PRN wild fraser ea miscellaneous Tobacco use date assessed: 02/26/24 Dental Screening Dental Screen Date: 02/26/24 Did you have a dental visit in the last 12 months?: Yes Did you have a dental problem in the last 6 months where you did not have access to dental care?: No Was dental information given to patient?: Patient has dentist HPI PE HPI Details 43 yearold overweight male with a histor y of gout hypercholesterolemia coming in for physical exam last seen in 11/25/2023 noted to have an elevated blood sugar and having foot pain. X-ray done on the left great toe showing advanced degenerative changes. Patient has scheduled podiatry referral. [facility] Medical History (Updated 02/26/24 @ 08:38 by Charito Monte MD) Hypertriglyceridemia Elevated blood pressure reading Encounter to establish care Septic olecranon bursitis of left elbow Surgical History No pertinent past surgical history Family History (Updated 02/26/24 @ 08:25 by Rosalind Aguilar CMA) Mother Hypertension Father Hypertension Diabetes Brother No problems noted. Sister No problems noted. Brother No problems noted. Son Crohn disease Son No problems noted. 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 1. Little interest or pleasure in doing things: not at all 2. Feeling down, depressed, or hopeless: not at all 3. Trouble falling or staying asleep, or sleeping too much: not at all 4. Feeling tired or having little energy: not at all 5. Poor appetite or overeating: not at all 6. Feeling bad about yourself - or that you are a failure or have let yourself or your family down: not at all 7. Trouble concentrating on things, such as reading the newspaper or watching television: not at all 8. Moving or speaking so slowly that other people could have noticed. Or the opposite - being so fidgety or restless that you have been moving around a lot more than usual: not at all 9. Thoughts that you would be better off or of hurting yourself in some way: not at all Total score: 0 Depression Screening Interpretation: Negative Depression Screening Done: Yes 81553 - PHQ-9 Billing: Yes Source: Developed by Drs. Cesar Walker, Roopa Eid, Abraham Ocampo and colleagues, with an educational paula from [employer]. Thrive Questionnaire Date Thrive assessed: 02/26/24 I am a: Patient What is your living situation today?: I have a steady place to live Within the past 12 months, did the food you bought not last and you didn't have the money to get more?: Never true Within the past 12 months, did you worry whether your food would run out before you got money to buy more?: Never true Do you have trouble paying for medicines?: No Do you have trouble getting transportation to medical appointments?: No Do you have trouble paying your heating and electricity bill?: No Do you have trouble taking care of your child, family member or friend?: No Do you have trouble with day-to-day activities such as bathing, preparing meals, shopping, managing finances, etc.?: No Are you currently unemployed and looking for a job?: No Are you interested in more education?: No Currently or been in a relationship where the following occur: No concerns reported THRIVE Score: 0 AUDIT C Alcohol Use Questionnaire (AUDIT-C) 1. How often do you have a drink containing alcohol?: 2-3 times a week 2. How many drinks containing alcohol do you have on a typical day when you are drinking?: 1 or 2 3. How often do you have six or more drinks on one occasion?: Never Total Score: 3 Score Reviewed/Action Taken: No TOMMY-7 AMB Questionnaire TOMMY-7 Date TOMMY - 7 assessed: 02/26/24 Feeling nervous, anxious, or on edge: 0 = Not at all Not being able to stop or control worryin = Not at all Worrying too much about different things: 0 = Not at all Trouble relaxin = Not at all Being so restless that it is hard to sit still: 0 = Not at all Becoming easily annoyed or irritable: 0 = Not at all Feeling afraid as if something awful might happen: 0 = Not at all Total TOMMY-7 score (0-4 normal; 5-9 mild; 10-14 moderate; 15-21 severe): 0 Source: Developed by Drs. Cesar Walker, Roopa Eid, Abraham Ocampo and colleagues, with an educational paula from [employer]. Review of Systems Const Denies poor appetite and Denies weakness Eyes Denies no additional complaints ENT Reports Normal hearing present, Denies dizziness, Denies nasal congestion, Denies tinnitus and Denies sore throat Card Denies chest pain, Denies syncope, Denies rapid heart rate and Denies dyspnea Resp Denies cough and Denies dyspnea GI Denies change in stool character, Reports constipation, Denies diarrhea, Denies nausea and Denies vomiting Denies dysuria and Denies urinary frequency Neuro Reports Normal hearing present, Denies confusion, Denies dizziness, Denies syncope and Denies weakness Psych Denies confusion Physical exam (Primary Care) Vital Signs: Last Vital Signs Pulse 78 02/26/24 08:17 BP 124/88 02/26/24 08:17 Pulse Ox 97 02/26/24 08:17 Oxygen Delivery Method Room Air 02/26/24 08:17 BMI result Body Mass Index 27.0 Tobacco/Smoking Status: Tobacco use Status Tobacco use date assessed 02/26/24 02/26/24 08:26 Patient Tobacco Use Status Former Tobacco user 02/26/24 08:26 Tobacco use type Cigarette 02/26/24 08:26 e-Cigarette/Vaping Use Never Used 02/26/24 08:26 PHQ-9: PHQ-9 Score PHQ-9: Total score 0 02/26/24 08:26 Depression Screening Interpretation: Negative Thrive Assessment: Date of Thrive Assessment Date Thrive assessed 02/26/24 02/26/24 08:26 Currently or been in a relationship where the following occur: No concerns reported Const General: No confusion Orientation/consciousness: No confusion HENMT Head: Yes normocephalic Ears: external ears normal and TM's normal bilaterally Face and sinus: Yes normal facial exam Mouth: moist mucous membranes Throat: Yes tonsils normal Eyes Conjunctivae: conjunctivae normal Pupils: Equal, round and reactive pupils present and Pupil accommodation reflex normal Direct Ophthalmoscopy: normal light reflex Neck Neck: No lymphadenopathy Thyroid: Thyroid normal Chest Chest palpation & inspection: normal inspection of the chest Resp Effort & Inspection: normal respiratory effort and no audible wheezes Auscultation: clear to auscultation bilaterally, no crackles, no wheezes and lung sounds not diminished Cardio Rate: regular rate Rhythm: regular rhythm Peripheral pulses: radial pulses present and dorsalis pedis present GI Palpation (GI): no masses Auscultation: normal bowel sounds and normoactive bowel sounds Rectal Exam - Male: Yes deferred Skin General skin exam: no rashes or lesions noted Rashes: no rashes Neuro General: No confusion Cranial nerves: Yes Equal, round and reactive pupils present and Yes Normal hearing present Cognition (Neuro): normal cognition Gait exam (Neuro): Normal gait present Motor exam (neuro): 5/5 motor strength present throughout Deep tendon reflexes (DTR's): Right brachioradialis reflex intensity grade: 2+, Left brachioradialis reflex intensity grade: 2+, Right patellar reflex intensity grade: 2+ and Left patellar reflex intensity grade: 2+ Extrem General: No edema Assessment and Plan Assessment & Plan (1) Adult general medical exam: Code(s): Z00.00 - Encounter for general adult medical examination without abnormal findings Plan: Patient is advised to eat healthy, keep well hydrated, keep active and have adequate sleep. (2) Overweight (BMI 25.0-29.9): Code(s): E66.3 - Overweight Plan: Diet and exercise (3) Gout: Comment: stable with diet Code(s): M10.9 - Gout, unspecified Plan: Continuing with allopurinol and colchicine but discussed with the patient that we can take out the colchicine.. Discussed with the patient on keeping well hydrated and eating healthy (4) Hypertriglyceridemia: Code(s): E78.1 - Pure hyperglyceridemia Plan: Avoid fried foods, chicken skin, eggs, butter margarine, pastries and meat. Be it pork or beef they have a lot of cholesterol LDL goal of less than 130 and triglyceride of less than 150 (5) Osteoarthritis of foot: Code(s): M19.079 - Primary osteoarthritis, unspecified ankle and foot Plan: Continue to be active. Patient will be seeing business intelligence etl developer. Medications: Changed From colchicine 0.6 mg PO DAILY 30 caps 1RF M10.9 - Gout, unspecified To colchicine 0.6 mg PO DAILY PRN 30 caps 1RF gout attack M10.9 - Gout, unspecified Coding Level of Care Code Est Pt Prev Care 40-64y(32374) Diagnoses Adult general medical exam Z00.00 Overweight (BMI 25.0-29.9) E66.3 Gout M10.9 Hypertriglyceridemia E78.1 Osteoarthritis of foot M19.079
== END 2024-02-26 08:53 | disposition home or self-care (01) ==
PROVIDERS: PCP Internal Medicine; Visit Provider Internal Medicine
DX: Z00.00 Encounter for general adult medical examination without abnormal findings (principal); E66.3 Overweight; M10.9 Gout, unspecified; E78.1 Pure hyperglyceridemia; M19.079 Primary osteoarthritis, unspecified ankle and foot
CPT/HCPCS: 99396

== ENCOUNTER 2025-03-02 08:45 | Outpatient (AMB) | payer BC, SELFPAY ==
[2025-03-02 08:51] VITALS: BP 168/102; PULSE 104; TEMP 36.2; O2SAT 98; BMI 26.6
--- NOTE | 2025-03-02 08:51 | A.OFFPC_ITS ---
Vital Signs 03/02/25 08:51 03/02/25 09:14 Height 5 ft 10 in Weight 185 lb 8 oz BMI 26.6 BP 168/102 H 130/90 H Blood Pressure Location Lt brachial Lt brachial Position Sitting Supine Pulse 104 H Pulse Source Pulse Oximeter Temp 97.1 F Temp Source Temporal Artery Scan Pulse Oximetry (%) 98 Oxygen Delivery Method Room Air Intake Visit Reasons: Annual Exam Allergies No Known Allergies Allergy (Verified 03/02/25 08:51) Medication List - Last Reconciled 03/02/25 by Charito Monte MD allopurinol 300 mg PO DAILY ascorbate calcium (vitamin C) 1 g PO DAILY colchicine 0.6 mg PO DAILY PRN wild fraser ea miscellaneous Tobacco use date assessed: 03/02/25 Dental Screening Dental Screen Date: 03/02/25 Did you have a dental visit in the last 12 months?: Yes Did you have a dental problem in the last 6 months where you did not have access to dental care?: No Was dental information given to patient?: Patient has dentist [facility] Medical History Hypertriglyceridemia Elevated blood pressure reading Encounter to establish care Septic olecranon bursitis of left elbow Surgical History No pertinent past surgical history Family History Mother Hypertension Father Hypertension Diabetes Brother No problems noted. Sister No problems noted. Brother No problems noted. Son Crohn disease Son No problems noted. 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 1. Little interest or pleasure in doing things: not at all 2. Feeling down, depressed, or hopeless: not at all 3. Trouble falling or staying asleep, or sleeping too much: not at all 4. Feeling tired or having little energy: not at all 5. Poor appetite or overeating: not at all 6. Feeling bad about yourself - or that you are a failure or have let yourself or your family down: not at all 7. Trouble concentrating on things, such as reading the newspaper or watching television: not at all 8. Moving or speaking so slowly that other people could have noticed. Or the opposite - being so fidgety or restless that you have been moving around a lot more than usual: not at all 9. Thoughts that you would be better off or of hurting yourself in some way: not at all Total score: 0 Depression Screening Interpretation: Negative Depression Screening Done: Yes 78695 - PHQ-9 Billing: Yes Source: Developed by Drs. Cesar Walker, Roopa Eid, Abraham Ocampo and colleagues, with an educational paula from [employer]. Thrive Questionnaire Date Thrive assessed: 02/23/25 I am a: Patient What is your living situation today?: I have a steady place to live Within the past 12 months, did the food you bought not last and you didn't have the money to get more?: Never true Within the past 12 months, did you worry whether your food would run out before you got money to buy more?: Never true Do you have trouble paying for medicines?: No Do you have trouble getting transportation to medical appointments?: No Do you have trouble paying your heating and electricity bill?: No Do you have trouble taking care of your child, family member or friend?: No Do you have trouble with day-to-day activities such as bathing, preparing meals, shopping, managing finances, etc.?: No Are you currently unemployed and looking for a job?: No Are you interested in more education?: Yes Please select the resources that you would like help with: None Currently or been in a relationship where the following occur: No concerns reported THRIVE Score: 0 AUDIT C Alcohol Use Questionnaire (AUDIT-C) 1. How often do you have a drink containing alcohol?: 2-3 times a week 2. How many drinks containing alcohol do you have on a typical day when you are drinking?: 1 or 2 3. How often do you have six or more drinks on one occasion?: Never Total Score: 3 TOMMY-7 AMB Questionnaire TOMMY-7 Date TOMMY - 7 assessed: 03/02/25 Feeling nervous, anxious, or on edge: 0 = Not at all Not being able to stop or control worryin = Not at all Worrying too much about different things: 1 = Several days Trouble relaxin = Several days Being so restless that it is hard to sit still: 0 = Not at all Becoming easily annoyed or irritable: 0 = Not at all Feeling afraid as if something awful might happen: 0 = Not at all Total TOMMY-7 score (0-4 normal; 5-9 mild; 10-14 moderate; 15-21 severe): 2 Source: Developed by Drs. Cesar Walker, Roopa Eid, Abraham Ocampo and colleagues, with an educational paula from [employer]. TOMMY-7 Assessment Billing TOMMY-7 Assessment Tool: TOMMY-7 Assessment 10984 Review of Systems Const Denies poor appetite and Denies weakness Eyes Denies no additional complaints ENT Reports Normal hearing present, Denies dizziness, Denies nasal congestion, Denies tinnitus and Denies sore throat Card Denies chest pain, Denies syncope, Denies rapid heart rate and Denies dyspnea Resp Denies cough and Denies dyspnea GI Denies change in stool character, Reports constipation, Denies diarrhea, Denies nausea and Denies vomiting Denies dysuria and Denies urinary frequency Neuro Reports Normal hearing present, Denies confusion, Denies dizziness, Denies syncope and Denies weakness Psych Denies confusion Physical exam (Primary Care) Vital Signs: Last Vital Signs Temp 97.1 F 03/02/25 08:51 Pulse 104 H 03/02/25 08:51 BP 168/102 H 03/02/25 08:51 Pulse Ox 98 03/02/25 08:51 Oxygen Delivery Method Room Air 03/02/25 08:51 BMI result Body Mass Index 26.6 Tobacco/Smoking Status: Tobacco use Status Tobacco use date assessed 03/02/25 03/02/25 08:55 Patient Tobacco Use Status Former Tobacco user 03/02/25 08:55 Tobacco use type Cigarette 03/02/25 08:55 e-Cigarette/Vaping Use Never Used 08/26/25 08:55 PHQ-9: PHQ-9 Score PHQ-9: Total score 0 03/02/25 08:55 Depression Screening Interpretation: Negative Thrive Assessment: Date of Thrive Assessment Date Thrive assessed 02/23/25 03/02/25 08:55 Currently or been in a relationship where the following occur: No concerns reported Const General: No confusion Orientation/consciousness: No confusion HENMT Head: Yes normocephalic Ears: external ears normal and TM's normal bilaterally Face and sinus: Yes normal facial exam Mouth: moist mucous membranes Throat: Yes tonsils normal Eyes Conjunctivae: conjunctivae normal Pupils: Equal, round and reactive pupils present and Pupil accommodation reflex normal Direct Ophthalmoscopy: normal light reflex Neck Neck: No lymphadenopathy Thyroid: Thyroid normal Chest Chest palpation & inspection: normal inspection of the chest Resp Effort & Inspection: normal respiratory effort and no audible wheezes Auscultation: clear to auscultation bilaterally, no crackles, no wheezes and l katherine sounds not diminished Cardio Rate: regular rate Rhythm: regular rhythm Peripheral pulses: radial pulses present and dorsalis pedis present GI Palpation (GI): no masses Auscultation: normal bowel sounds and normoactive bowel sounds Rectal Exam - Male: Yes deferred Skin General skin exam: no rashes or lesions noted Rashes: no rashes Neuro General: No confusion Cranial nerves: Yes Equal, round and reactive pupils present and Yes Normal hearing present Cognition (Neuro): normal cognition Gait exam (Neuro): Normal gait present Motor exam (neuro): 5/5 motor strength present throughout Deep tendon reflexes (DTR's): Right brachioradialis reflex intensity grade: 2+, Left brachioradialis reflex intensity grade: 2+, Right patellar reflex intensity grade: 2+ and Left patellar reflex intensity grade: 2+ Extrem General: No edema Coding Level of Care Code Est Pt Prev Care 40-64y(22245) Diagnoses Annual physical exam Z00.00 Overweight (BMI 25.0-29.9) E66.3 Osteoarthritis of foot M19.079 Hypertriglyceridemia E78.1 Gout M10.9 Blood pressure elevated without history of HTN R03.0 Additional Codes TOMMY-7 Assessment Billing - TOMMY-7 Assessment Tool: TOMMY-7 Assessment 53145 ([id number]) PHQ-9 - 24179 - PHQ-9 Billing: Yes ([id number]) Assessment & Plan Assessment & Plan (1) Annual physical exam: Code(s): Z00.00 - Encounter for general adult medical examination without abnormal findings Category: Medical Plan: Patient is advised to eat healthy, keep well hydrated, keep active and have adequate sleep. (2) Overweight (BMI 25.0-29.9): Code(s): E66.3 - Overweight Category: Medical Plan: Diet and exercise (3) Osteoarthritis of foot: Comment: 2023 Code(s): M19.079 - Primary osteoarthritis, unspecified ankle and foot Category: Medical Plan: Last years x-ray showing advanced degenerative changes on the toe (4) Hypertriglyceridemia: Code(s): E78.1 - Pure hyperglyceridemia Category: Medical Plan: Avoid fried foods, chicken skin, eggs, butter margarine, pastries and meat. Be it pork or beef they have a lot of cholesterol LDL goal of less than 130 and triglyceride of less than 150 (5) Gout: Comment: stable with diet Code(s): M10.9 - Gout, unspecified Category: Medical Plan: Keep well hydrated, low purine diet (6) Blood pressure elevated without history of HTN: Code(s): R03.0 - Elevated blood-pressure reading, without diagnosis of hypertension Category: Medical Plan History of Present Illness The patient is a 44-year-old male presenting for an annual physical examination and management of chronic conditions. The patient has a history of gout, managed with allopurinol 300 mg daily and occasional colchicine for flare-ups. He adheres to a low purine diet and maintains good hydration to prevent exacerbations. Hypercholesterolemia is another chronic condition, with a focus on maintaining LDL cholesterol below 130 mg/dL and triglycerides below 150 mg/dL. The patient follows dietary recommendations and engages in regular physical activity to manage lipid levels. The patient reports bilateral foot pain, attributed to advanced degenerative changes in the metatarsophalangeal joint, as confirmed by an x-ray in November 2023. Orthotic devices have been beneficial in alleviating symptoms and improving mobility. Hypertension is monitored regularly, with recent readings around 130/90 mmHg. The patient is advised to record blood pressure readings weekly and ensure proper rest before measurements. Health Maintenance - Blood pressure monitoring advised weekly with proper rest before measurements - Dietary modifications include low purine diet and cholesterol management - Regular physical activity encouraged for cardiovascular health - Vaccinations: Tetanus up to date, flu shot recommended in April Social History - Alcohol consumption: Two to three times a week, two to three drinks per occasion - No tobacco or recreational drug use - Diet: Low purine diet to manage gout - Exercise: Engages in regular physical activity Review of Systems - Cardiovascular: Denies chest pain, orthopnea, or syncope - Respiratory: Denies dyspnea, cough, or wheezing - Gastrointestinal: Denies nausea, vomiting, or dysphagia - Neurological: Denies dizziness or syncope - Musculoskeletal: Reports bilateral foot pain Physical Exam General: Cooperative, healthy appearing, comfortable, no acute distress and well developed Orientation: Patient oriented x3 Limitations: No limitations Head: Normal to inspection Ears: Hearing grossly normal bilaterally Nose: Normal external nose present Face and sinus: Normal facial exam Eyes: Appearance normal, both eyes and all related structures Neck: Normal visual inspection and Yes full ROM Respiratory: Normal respiratory effort and able to speak in complete sentences. Clear to auscultation bilaterally Cardiovascular: Regular rate and rhythm. Normal S1 and S2 GI: Normal to inspection. Soft to palpation and nontender Skin: No rashes or lesions noted Neuro: Patient oriented x3 Extremities: Normal to inspection Results - Labs: Normal blood count, electrolytes, renal function, blood sugar, liver function, B12, folic acid, and thyroid levels; elevated triglycerides - Imaging: X-ray in November 2023 showed advanced degenerative changes in the metatarsophalangeal joint Plan Patient was informed and verbally consented to the use of an ambient scribe for clinic note documentation during this visit. 1. Gout The patient is advised to continue allopurinol 300 mg daily and use colchicine as needed for flare-ups. A low purine diet and adequate hydration are recomm ended to prevent exacerbations. 2. Hypercholesterolemia The patient is encouraged to maintain LDL cholesterol below 130 mg/dL and triglycerides below 150 mg/dL through dietary modifications and regular exercise. 3. Bilateral Foot Pain Orthotic devices are recommended to alleviate symptoms and improve mobility. 4. Hypertension The patient is advised to monitor blood pressure weekly and ensure proper rest before measurements. Follow-up in three months to assess blood pressure control and adjust management as needed. Discussion Notes During the visit, we discussed the management of gout with allopurinol and colchicine as needed, emphasizing the importance of a low purine diet and hydration. For hypercholesterolemia, dietary modifications and exercise were recommended to maintain target lipid levels. We addressed bilateral foot pain with orthotic devices to improve mobility. Hypertension management includes regular monitoring and lifestyle modifications, with a follow-up scheduled in three months. Patient Instructions - Continue taking allopurinol daily and use colchicine as needed for gout flare- ups. - Follow a low purine diet and stay well-hydrated. - Maintain dietary modifications and regular exercise to manage cholesterol levels. - Use orthotic devices to alleviate foot pain and improve mobility. - Monitor blood pressure weekly, ensuring proper rest before measurements. - Schedule a follow-up appointment in three months to reassess blood pressure management. Orders: Orders Complete Blood Count Auto Diff Today R73.01 - Impaired fasting glucose Uric Acid Today R73.01 - Impaired fasting glucose Thyroid Stimulating Hormone Today R73.01 - Impaired fasting glucose Lipid Panel Today E78.00 - Pure hypercholesterolemia, unspecified, R73.01 - Impaired fasting glucose Hemoglobin A1c Today R73.01 - Impaired fasting glucose Comprehensive Met. Panel Today R73.01 - Impaired fasting glucose Free T4 (Free Thyroxine) Today R73.01 - Impaired fasting glucose Vitamin B12 and Folate Today R73.01 - Impaired fasting glucose Medications: Refilled allopurinol 300 mg PO DAILY 90 tabs 3RF R73.01 - Impaired fasting glucose
--- OUTSIDE RECORDS SUMMARY | 2025-03-02 09:01 | XMS_ITS | Patient Health Record ---
Author Organization [facility] Address [address] [facility] [place] [address] Care Team Providers Care Institution Librarian Name Role Phone Charito Monte Primary Care Provider Terence diaz Rohini Aldridge Unavailable [phone] Allergies No Known Allergies Results Component Value Reference Range Notes X ray : Foot, left 3V Reviewed date:05/11/2024 02:28:20 PM Interpretation:See Examination above Performing Lab: Notes/Report: See Examination above X ray : Foot, right 3V Reviewed date:05/11/2024 02:28:31 PM Interpretation:See Examination above Performing Lab: Notes/Report: See Examination above Reason For Referral No Information Medications Medication SIG (Take, Route, Fr equency, Duration) Notes Start Date End Date Status Allopurinol 300 MG 1 tablet Orally Once a day Active Social History Tobacco Use: Social History Observation Description Date Details (start date - stop date) Former Smoker NA - NA Tobacco Use/Smoking Question Answer Notes Are you a: former smoker Additional Findings: Tobacco Non-User Current no n-smoker Alcohol Screen Question Answer Notes Did you have a drink containing alcohol in the p ast year? Yes Points 0 Interpretation Negative Tobacco use other than smoking: Question Answer Notes Are you an other tobacco user? No Problems Problem Type SNOMED Code ICD Code Onset Dates Problem Status W/U Status Risk Notes Problem Hallux valgus (acquired), left foot (M20.12) Active confirmed Problem Acquired hallux valgus (08200771) Hallux valgus (acquired), right foot (M20.11) Active confirmed Problem Arthritis (5104647) Arthritis (M19.90) Active confirmed Vital Signs Height 5ft 10in in 05/11/2024 Weight 190 lbs 05/11/2024 BMI 27.26 kg/m2 05/11/2024 Encounters Encounter Location Date Provider Diagnosis [facility] [address] [address] 05/11/2024 Rohini Black Pain in left foot M79.672 ; Hallux limitus of left foot M20.5X2 ; Pain in left ankle and joints of left foot M25.572 ; Bursitis of left foot M77.52 ; Pain in right foot M79.671 ; Pain in right ankle and joints of right foot M25.571 ; Bursitis of right foot M77.51 ; Hallux limitus of right foot M20.5X1 and Arthritis M19.90 [facility] [address] [address] 05/11/2024 Rohini Black Assessments Encounter Date Diagnosis (ICD Code) Assessment Notes Treatment Notes Treatment Clinical Notes Section Notes 05/11/2024 Pain in left foot (ICD-10 - M79.672) 05/11/2024 Hallux limitus of left foot (ICD-10 - M20.5X2) 05/11/2024 Pain in left ankle and joints of left foot (ICD-10 - M25.572) 05/11/2024 Bursitis of left foot (ICD-10 - M77.52) 05/11/2024 Pain in right foot (ICD-10 - M79.671) 05/11/2024 Pain in right ankle and joints of right foot (ICD-10 - M25.571) 05/11/2024 Bursitis of right foot (ICD-10 - M77.51) 05/11/2024 Hallux limitus of right foot (ICD-10 - M20.5X1) 05/11/2024 Arthritis (ICD-10 - M19.90) Plan Of Treatment No Information Insurance Providers Payer Name Payer Address Payer Phone Subscriber Number Group Number Insured Name Patient Relationship to Insured Coverage Start Date Coverage End Date [facility] All Others [address] [place] [address] [phone] [id number] Rosalind Espinoza Spouse - patient is the spouse of the insured Medical (General) History Medical History History ICD Code Gout Chicken pox
[2025-03-02 09:14] VITALS: BP 130/90
== END 2025-03-02 09:28 | disposition home or self-care (01) ==
LOC: HO.HMCH 08:46
PROVIDERS: PCP Internal Medicine; Visit Provider Internal Medicine
DX: Z00.00 Encounter for general adult medical examination without abnormal findings (principal); E66.3 Overweight; M19.079 Primary osteoarthritis, unspecified ankle and foot; E78.1 Pure hyperglyceridemia; M10.9 Gout, unspecified; R03.0 Elevated blood-pressure reading, without diagnosis of hypertension

== ENCOUNTER → 2025-03-02 08:45 | Outpatient (BNVA) | payer BC, SELFPAY | PROVIDERS: PCP Internal Medicine; Visit Provider Internal Medicine | DX: Z00.00 Encounter for general adult medical examination without abnormal findings (principal); E66.3 Overweight; E78.1 Pure hyperglyceridemia; M10.9 Gout, unspecified; R03.0 Elevated blood-pressure reading, without diagnosis of hypertension; E78.00 Pure hypercholesterolemia, unspecified; M79.672 Pain in left foot; M79.671 Pain in right foot; I10 Essential (primary) hypertension; Z79.899 Other long term (current) drug therapy; Z68.26 Body mass index [BMI] 26.0-26.9, adult | CPT/HCPCS: 96127 ==

== ENCOUNTER 2025-03-03 06:35 | Outpatient (REF) | payer BC, SELFPAY ==
--- OUTSIDE RECORDS SUMMARY | 2025-03-03 06:39 | XMS_ITS | Patient Health Record ---
Author Organization [facility] Address [address] [facility] [place] [address] Care Team Providers Care Civil Engineering Project Manager Name Role Phone Charito Monte Primary Care Provider Terence diaz Rohini Aldridge Unavailable [phone] Allergies No Known Allergies Results Component Value [...] Problem Status W/U Status Risk Notes Problem Acquired hallux valgus (41832989) Hallux valgus (acquired), left foot (M20.12) Active confirmed Problem Acquired hallux valgus (72354911) Hallux valgus (acquired), right foot (M20.11) Active confirmed Problem Arthritis (0498109) Arthritis (M19.90) Active confirmed Vital Signs Height 5ft 10in in 05/11/2024 Weight 190 lbs 05/11/2024 BMI 27.26 kg/m2 05/11/2024 Encounters Encounter Location Date Provider Diagnosis [facility] [address] [address] 05/11/2024 Rohini Black Pain in left foot [...] of right foot M20.5X1 and Arthritis M19.90 [facility] [address] [address] 05/11/2024 Rohini Black Assessments Encounter Date Diagnosis [...] Insured Coverage Start Date Coverage End Date [facility] [id number] [place] [address] [phone] [id number] Rosalind Espinoza Spouse - patient is the spouse of the insured Medical (General) History Medical History History ICD Code Gout Chicken pox
[2025-03-03 07:11] LABS: MANUAL DIFF FLAG NO
[2025-03-03 07:41] LABS: Hematocrit 44.1 % (42.0-52.0); Hemoglobin 14.8 g/dl (14.0-18.0); Imm Gran Abs Auto 0.01 X10*3/uL (0.00-0.03); Imm Gran Pct Auto 0.2 % (0.0-0.4); Lymphocytes Absolute Auto 1.7 X10*3/uL (1.2-4.9); Mean Corpuscular HGB Conc 33.6 g/dl (31.0-36.0); Mean Corpuscular Hemoglobin 31.9 pg (27.0-33.0); Mean Corpuscular Volume 95.0 fL (80.0-98.0); NRBC Abs Auto 0.000 X10*3/uL (0.0-0.012); NRBC Pct Auto 0.0 /100WBC (0.0-0.2); Platelet Count 178 X10*3/uL (160-400); Red Blood Count 4.64 X10*6/uL (4.60-5.80); White Blood Count 4.9 X10*3/uL (4.8-10.8)
[2025-03-03 07:48] LABS: Hemoglobin A1C 139.2375 umol/L; Total Hemoglobin (HGBA1C) 3949.5259 umol/L
[2025-03-03 08:37] LABS: Alanine Aminotransferase 33 U/L (0-40); Albumin Level 4.9 g/dL (3.5-5.0); Alkaline Phosphatase 40 U/L (39-117); Anion Gap 12 (12-20); Aspartate Amino Transferase 31 U/L (5-37); Blood Urea Nitrogen 15 mg/dL (9-16); Calcium 9.4 mg/dL (8.4-10.2); Carbon Dioxide 28 mmol/L (22-29); Chloride 103 mmol/L (96-108); Cholesterol 233 mg/dL (<200); Estimated Glomerular Filt Rate > 60; HDL Cholesterol 73 mg/dL (>40); Potassium 4.4 mmol/L (3.3-5.1); Sodium 139 mmol/L (135-145); Total Protein 7.1 g/dL (6.5-8.0); Triglycerides 137 mg/dL (<150); Uric Acid 5.6 mg/dL (3.4-7.0)
[2025-03-03 08:52] LABS: Folate 13.0 ng/mL (> or = 4.0); Vitamin B12 925 pg/mL (200-900)
[2025-03-03 08:53] LABS: Free T4 (Free Thyroxine) 0.98 ng/dL (0.71-1.85); Thyroid Stimulating Hormone 1.87 uIU/mL (0.32-4.0)
== END 2025-03-03 06:36 | disposition home or self-care (01) ==
LOC: HO.LAB 06:35
PROVIDERS: PCP Internal Medicine; Visit Provider Internal Medicine
DX: R73.01 Impaired fasting glucose (principal); E78.00 Pure hypercholesterolemia, unspecified
CPT/HCPCS: 36415; 80053; 80061; 82607; 82746; 83036; 84439; 84443; 84550; 85025

== ENCOUNTER 2025-03-21 09:53 | Emergency (ER) | payer BC, SELFPAY ==
--- NOTE | ~2025-03-21 | XR_ITS ---
CLINICAL HISTORY: thumb avulsion 3 view rightthumb Comparison: None Findings: No fractures or dislocations. No significant arthritic change. No erosions. No radiopaque foreign body. IMPRESSION: 1. No acute findings This document has been electronically signed by: Jarrod Sam MD on 03/21/2025 11:27:59
[2025-03-21 09:58] VITALS: BP 152/90; PULSE 87; RESP 16; TEMP 36.2; O2SAT 96; BMI 27.1
--- NOTE | 2025-03-21 10:19 | ED.GENADULT ---
HPI - General Adult General Chief complaint: Wound/Laceration Stated complaint: thumb lac wont stop bleeding Time Seen by Provider: 03/21/25 10:19 Source: patient, RN notes reviewed and old records reviewed Mode of arrival: ambulatory Limitations: no limitations History of Present Illness ED Provider: Yaima [facility] narrative: Patient is a 44-year-old left-hand dominant male presenting to the emergency department with complaint of avulsion to the tip of his right thumb. States that he cut the tip of his thumb accidentally while preparing his lunch. He was using a regular kitchen knife. States he is up-to-date on his vaccinations, had recent annual visit with his PCP. States areas painful when open to air. Denies any other injuries. Not anticoagulated. MD complaint: thumb avulsion Onset (ago): minute(s) Related Data Home Medications ?Medication ?Instructions ?Recorded ?Confirmed ascorbate calcium (vitamin C) 500 1 g PO DAILY 10/10/23 03/02/25 mg tablet wild fraser ea miscellaneous 02/26/24 03/02/25 Previous Rx's ?Medication ?Instructions ?Recorded colchicine 0.6 mg capsule 0.6 mg PO DAILY PRN gout attack 02/26/24 #30 caps allopurinol 300 mg tablet 300 mg PO DAILY #90 tabs 03/02/25 Allergies Allergy/AdvReac Type Severity Reaction Status Date / Time No Known Allergies Allergy Verified 03/21/25 09:58 Review of Systems Review of Systems: as per hpi Yes all other systems are reviewed and are negative Constitutional: Constitutional: Reports as per HPI [facility] Past Medical History Medical History Hypertriglyceridemia Elevated blood pressure reading Encounter to establish care Septic olecranon bursitis of left elbow Surgical History No pertinent past surgical history Family History Family History Mother Hypertension Father Hypertension Diabetes Brother No problems noted. Sister No problems noted. Brother No problems noted. Son Crohn disease Son No problems noted. 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 Blood pressure normal. Heart rate normal. Respiratory rate normal. Temperature normal. Oxygen saturation normal. Const General: cooperative, healthy appearing and no acute distress Orientation/consciousness: oriented to person, oriented to place, oriented to time and patient oriented x3 Limitations: no limitations HENMT Head: Yes normocephalic and Yes atraumatic Ears: external ears normal General nose exam: Normal external nose present Face and sinus: Yes face symmetric Mouth: oropharynx normal and moist mucous membranes Throat: Yes uvula midline Eyes Pupils: Equal, round and reactive pupils present Neck Neck: Yes normal visual inspection and Yes supple Resp Effort & Inspection: normal respiratory effort and able to speak in complete sentences Auscultation: clear to auscultation bilaterally Cardio Rate: regular rate Rhythm: regular rhythm Heart sounds: S1 normal heart sound present and S2 normal heart sound present GI Palpation (GI): Soft to palpation and nontender Auscultation: normoactive bowel sounds General: Yes no CVA tenderness Back/Spine/Pelvis Back: no CVA tenderness Skin General skin exam: elasticity normal and turgor normal Neuro General: oriented to person, oriented to place, oriented to time, patient oriented x3, moves all extremities, no focal motor deficits and CN's II-XI intact bilaterally Cranial nerves: Yes Equal, round and reactive pupils present Cognition (Neuro): normal cognition Extrem General: Yes full ROM, Yes no pedal edema and Yes no calf tenderness Right upper extremity: Extremity exam: right hand Details: laceration (minor avulsion to distal tip of thumb with active bleeding) Psych Mental Status: mental status grossly normal Affect: normal affect Thought process: Normal thought process present Medical Decision Making Medical Decision Making [facility] Narrative: Patient is a 44-year-old left-hand dominant male presenting to the emergency department with complaint of avulsion to the tip of his right thumb. On exam patient is awake, A+Ox3, VS WNL, afebrile, normal neurological exam without focal deficits, physical exam findings as above. Given reported symptoms and physical exam findings, initial differential includes but is not limited to avulsion, possible fracture. X-ray notable for no evidence of fracture. My interpretation is in agreement with the radiologist's interpretation. Wound cleansed with iodine, dressed with Xeroform and bandage. Advised patient to return to the emergency department in 48 hours for wound recheck. Instructed him to keep this dressing on and clean and dry for the next 48 hours. Return precautions discussed. Patient verbalized understanding of and agreement with plan. Differential Diagnosis Differential Diagnoses: The differential diagnosis associated with the presentation includes As per [facility] Admission/Observation Consideration of admission/observation: Escalation of care including admission/observation considered Patient would have been admitted to the hospital had their clinical presentation warranted hospital admission. Independent Interpretation I performed an independent interpretation of an: Plain X-Ray Interpretation: No evidence of fracture to right thumb on x-ray. Radiology Impression Discussion of test interpretation with radiology: I have reviewed the radiologist's reading. Radiologist Impression: IMPRESSION: 1. No acute findings External Record Review External record reviewed: Inpatient record, Office record and Outpatient record Discharge Plan Discharge Clinical Impression: Avulsion of skin of thumb Qualifiers: Encounter type: initial encounter Laterality: right Qualified Code(s): S61.001A - Unspecified open wound of right thumb without damage to nail, initial encounter Patient Disposition: Home, Self-Care Instructions: Skin Avulsion (ED) Additional Instructions: You have been evaluated in the emergency department today for a laceration to your thumb. Your laceration was bandaged in the emergency department and this bandage should remain in place and dry for the next 48 hours. Return to the emergency department after 48 hours for re-evaluation of the wound. If you note any redness or swelling near the dressing before 48 hours, return to the emergency department. Prescriptions: No Action ascorbate calcium (vitamin C) 500 mg tablet 1 g PO DAILY colchicine 0.6 mg capsule 0.6 mg PO DAILY PRN (Reason: gout attack) Qty: 30 1RF wild fraser Fluid Extract miscellaneous allopurinol 300 mg tablet 300 mg PO DAILY Qty: 90 3RF Print Language: Yoruba
--- OUTSIDE RECORDS SUMMARY | 2025-03-21 10:21 | XMS_ITS | Patient Health Record ---
Author Organization [facility] Address [address] [facility] [place] [address] Care Team Providers Care Specification Manager Name Role Phone Charito Monte Primary Care Provider Terence diaz Rohini Aldridge Unavailable [phone] Allergies No Known Allergies Results Component Value [...] Status Risk Notes Problem Acquired hallux valgus (87717826) Hallux valgus (acquired), left foot (M20.12) Active confirmed Problem Acquired hallux valgus (17314925) Hallux valgus (acquired), right foot (M20.11) Active confirmed Problem Arthritis (0586978) Arthritis (M19.90) Active confirmed Vital Signs Height 5ft 10in in 05/11/2024 Weight 190 lbs 05/11/2024 BMI 27.26 kg/m2 05/11/2024 Encounters Encounter Location Date Provider Diagnosis [facility] [address] [address] 05/11/2024 Rohini Black Pain in left foot [...] of right foot M20.5X1 and Arthritis M19.90 [facility] [address] [address] 05/11/2024 Rohini Black Assessments Encounter Date Diagnosis [...] Insured Coverage Start Date Coverage End Date [facility] [id number] [place] [address] [phone] [id number] Rosalind Espinoza Spouse - patient is the spouse of the insured Medical (General) History Medical History History ICD Code Gout Chicken pox
--- NOTE | 2025-03-21 10:49 | PC.NURSE ---
Patient is a 44 yo male who presents after cutting self with a knife while making lunch. Small avulsion lac noted tip of right thumb. Bleeding controlled. Respirations even and non-labored. No distress noted at this time. Medical History Hypertriglyceridemia Elevated blood pressure reading Encounter to establish care Septic olecranon bursitis of left elbow
[2025-03-21 11:48] VITALS: BP 152/90; PULSE 87; RESP 16; TEMP 36.2; O2SAT 96
== END 2025-03-21 11:49 | disposition home or self-care (01) ==
PROVIDERS: Emergency Provider Emergency Medicine; PCP Internal Medicine
DX: S61.011A Laceration without foreign body of right thumb without damage to nail, initial encounter (principal); W26.0XXA Contact with knife, initial encounter; Y93.9 Activity, unspecified; Y92.000 Kitchen of unspecified non-institutional (private) residence as the place of occurrence of the external cause; Y99.8 Other external cause status; Z79.899 Other long term (current) drug therapy
CPT/HCPCS: 73140; 99283; 99284

== ENCOUNTER → 2025-03-21 10:51 | Outpatient (BNV) | payer BC, SELFPAY | PROVIDERS: Emergency Provider Emergency Medicine; PCP Internal Medicine; Visit Provider Specialist | DX: S69.91XA Unspecified injury of right wrist, hand and finger(s), initial encounter (principal) | CPT/HCPCS: 73140 ==

== ENCOUNTER 2025-03-23 12:25 | Emergency (ER) | payer BC, SELFPAY ==
[2025-03-23 12:36] VITALS: BP 151/96; PULSE 99; RESP 16; TEMP 36.4; O2SAT 96; BMI 26.9
--- NOTE | 2025-03-23 14:00 | ED.WOUNDLAC ---
HPI - Wound/Laceration General Chief Complaint: Wound/Laceration Stated Complaint: Finger injury, told to return Time Seen by Provider: 03/23/25 13:04 Source: patient and RN notes reviewed Mode of arrival: ambulatory Limitations: no limitations History of Present Illness ED Provider: Kacie Garrido PA-C HPI narrative: This is a 44-year-old male who presents emergency department for wound check. Patient was seen here on Saturday after avulsing his right thumb. Was told to come back in 48 hours to ensure that the wound is healing. Patient does report some increased pain, and some diminished sensation in his finger, however this was following immediately after the incident. No fevers or chills. No increased drainage or redness. No other complaints or concerns at this time. Related Data Home Medications ?Medication ?Instructions ?Recorded ?Confirmed ascorbate calcium (vitamin C) 500 1 g PO DAILY 10/10/23 03/02/25 mg tablet wild fraser ea miscellaneous 02/26/24 03/02/25 Previous Rx's ?Medication ?Instructions ?Recorded colchicine 0.6 mg capsule 0.6 mg PO DAILY PRN gout attack 02/26/24 #30 caps allopurinol 300 mg tablet 300 mg PO DAILY #90 tabs 03/02/25 acetaminophen 500 mg tablet 1,000 mg (2 x 500 mg) PO Q8H PRN 03/23/25 (Tylenol Extra Strength) pain #30 tabs ibuprofen 600 mg tablet 600 mg PO Q6H PRN pain #30 tabs 03/23/25 amoxicillin 875 mg-potassium 1 tab PO BID 5 days #10 tabs 03/26/25 clavulanate 125 mg tablet Allergies Allergy/AdvReac Type Severity Reaction Status Date / Time No Known Allergies Allergy Verified 03/26/25 14:24 Review of Systems Review of Systems: Constitutional : No Fever, No Chills ENT/Mouth : No sore throat, No Rhinorrhea Eyes: No Eye Pain, No Swelling, No Redness Cardiovascular : No Chest Pain, No SOB Respiratory : No Cough, No Sputum Gastrointestinal : No Nausea, No Vomiting, No Diarrhea, No abdominal Pain Genitourinary : No Dysuria, No Hematuria Musculoskeletal : No joint pain, No Myalgias, No Joint Swelling Skin : No Skin Lesions Neuro : No Weakness, No Numbness, No Headache All other systems reviewed and are negative PMF Past Medical History Medical History Hypertriglyceridemia Elevated blood pressure reading Encounter to establish care Septic olecranon bursitis of left elbow Surgical History No pertinent past surgical history Family History Family History Mother Hypertension Father Hypertension Diabetes Brother No problems noted. Sister No problems noted. Brother No problems noted. Son Crohn disease Son No problems noted. 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 No acute distress. HEENT: Normal inspection CVS: Normal heart rate and rhythm. Pulses normal. Respiratory: No respiratory distress Skin: Right thumb at the tip this is a 2 cm area of avulsed skin, slight oozing. No surrounding erythema or warmth. Full ROM of the digit without difficulty. Decreased sensation. Extremities: see photo Neuro: Oriented X 3. No motor deficit. No sensory deficit. Vital Signs: Vital Signs: Last Vital Signs Temp 97.6 F 03/23/25 14:11 Pulse 99 03/23/25 14:11 Resp 16 03/23/25 14:11 BP 151/96 H 03/23/25 14:11 Pulse Ox 96 03/23/25 14:11 O2 Del Method Room Air 03/23/25 14:11 BMI result Body Mass Index 26.9 Medical Decision Making Medical Decision Making [facility] Narrative: This is a 44-year-old male who presents emergency department for wound check. Patient accidentally avulsed his thumb 2 days ago, was seen in the emergency room and was told to return back. Wound was undressed, no surrounding erythema or warmth. Did reapply Xeroform to the thumb, I also advised patient to follow-up with the orthopedist given decreased sensation. He has full range of motion, no evidence of cellulitis. I did start him on antibiotics to ensure that this does not get infected. He understands and agrees with plan. Given strict return precautions. Patient stable for discharge. Differential Diagnosis Differential Diagnoses: The differential diagnosis associated with the presentation includes Wound dehiscence, cellulitis, wound check Discharge Plan Discharge Clinical Impression: Visit for wound check, Avulsion of skin Patient Disposition: Home, Self-Care Instructions: Acute Wounds (ED) Additional Instructions: You were seen in the emergency department for a wound check. Keep wound clean and dry. You may remove dressing every 1-2 days. I provided you with supplies. You may wash with gentle soap and water. You may also reapply the Xeroform every 2 days if this does come off. Please keep this on until you follow-up with the corporate communications specialist. Please take ibuprofen and or Tylenol as needed for pain and symptoms. Ibuprofen 600 mg every 6 hours, take with food. 2 hours later take Tylenol a 1000 mg. Alternating between both of these medications can provide you with relief. Take prescribed antibiotic as directed. Watch for any new or worsening symptoms including but not limited to increased redness, fevers, worsening pain, please return for re-evaluation. I also want you to follow-up with the corporate communications specialist, call today to make an appointment. Prescriptions: New acetaminophen [Tylenol Extra Strength] 500 mg tablet 1,000 mg PO Q8H PRN (Reason: pain) Qty: 30 0RF ibuprofen 600 mg tablet 600 mg PO Q6H PRN (Reason: pain) Qty: 30 0RF No Action ascorbate calcium (vitamin C) 500 mg tablet 1 g PO DAILY colchicine 0.6 mg capsule 0.6 mg PO DAILY PRN (Reason: gout attack) Qty: 30 1RF wild fraser Fluid Extract miscellaneous allopurinol 300 mg tablet 300 mg PO DAILY Qty: 90 3RF amoxicillin-pot clavulanate 875-125 mg tablet 1 tab PO BID 5 Days Qty: 10 0RF Referrals: [facility] [place] Orthopedic Surgeons [Provider Group] Interventions: ED Discharge Assessment Last Done: 03/23/25 14:11 Discharge Date/Time: 03/23/25 14:14 Print Language: Uruguayan
[2025-03-23 14:11] VITALS: BP 151/96; PULSE 99; RESP 16; TEMP 36.4; O2SAT 96
--- OUTSIDE RECORDS SUMMARY | 2025-03-23 17:51 | XMS_ITS | Patient Health Record ---
Author Organization [facility] Address [address] [facility] [place] [address] Care Team Providers Care Product Management Specialist Name Role Phone Charito Monte Primary Care Provider Terence diaz Rohini Aldridge Unavailable [phone] Allergies No Known Allergies Results Component Value [...] Status Risk Notes Problem Acquired hallux valgus (48351399) Hallux valgus (acquired), left foot (M20.12) Active confirmed Problem Acquired hallux valgus (06053282) Hallux valgus (acquired), right foot (M20.11) Active confirmed Problem Arthritis (1919363) Arthritis (M19.90) Active confirmed Vital Signs Height 5ft 10in in 05/11/2024 Weight 190 lbs 05/11/2024 BMI 27.26 kg/m2 05/11/2024 Encounters Encounter Location Date Provider Diagnosis [facility] [address] [address] 05/11/2024 Rohini Black Pain in left foot [...] of right foot M20.5X1 and Arthritis M19.90 [facility] [address] [address] 05/11/2024 Rohini Black Assessments Encounter Date Diagnosis [...] Insured Coverage Start Date Coverage End Date [facility] [id number] [place] [address] [phone] [id number] Rosalind Espinoza Spouse - patient is the spouse of the insured Medical (General) History Medical History History ICD Code Gout Chicken pox
== END 2025-03-23 14:14 | disposition home or self-care (01) ==
PROVIDERS: Emergency Provider Emergency Medicine; PCP Internal Medicine
DX: S61.001D Unspecified open wound of right thumb without damage to nail, subsequent encounter (principal); X58.XXXD Exposure to other specified factors, subsequent encounter; Z48.00 Encounter for change or removal of nonsurgical wound dressing
CPT/HCPCS: 99282; 99283

== ENCOUNTER 2025-03-26 13:39 | Outpatient (REF) | payer BC, SELFPAY ==
--- NOTE | ~2025-03-26 | XR_ITS ---
EXAMINATION: XR HAND 3 OR MORE VIEWS RIGHT HISTORY: M79.641 - Pain in right hand COMPARISON: Comparison is made with the prior examination dated 03/21/2025. FINDINGS: Three views of the right hand are submitted. Osseous mineralization is normal. There is no fracture or dislocation. The joint spaces are preserved. The soft tissues are unremarkable. XR/XR hand RT min 3V IMPRESSION: Unremarkable examination of the right hand. Electronically signed by: Cesar Davison MD 03/26/2025 02:32 PM EDT
--- OUTSIDE RECORDS SUMMARY | 2025-03-26 13:52 | XMS_ITS | Patient Health Record ---
Author Organization [facility] Address [address] [facility] [place] [address] Care Team Providers Care Air Tube Releaser Name Role Phone Charito Monte Primary Care Provider Terence diaz Rohini Aldridge Unavailable [phone] Allergies No Known Allergies Results Component Value [...] Status Risk Notes Problem Acquired hallux valgus (90836989) Hallux valgus (acquired), left foot (M20.12) Active confirmed Problem Acquired hallux valgus (51024666) Hallux valgus (acquired), right foot (M20.11) Active confirmed Problem Arthritis (8524504) Arthritis (M19.90) Active confirmed Vital Signs Height 5ft 10in in 05/11/2024 Weight 190 lbs 05/11/2024 BMI 27.26 kg/m2 05/11/2024 Encounters Encounter Location Date Provider Diagnosis [facility] [address] [address] 05/11/2024 Rohini Black Pain in left foot [...] of right foot M20.5X1 and Arthritis M19.90 [facility] [address] [address] 05/11/2024 Rohini Black Assessments Encounter Date Diagnosis [...] Insured Coverage Start Date Coverage End Date [facility] [id number] [place] [address] [phone] [id number] Rosalind Espinoza Spouse - patient is the spouse of the insured Medical (General) History Medical History History ICD Code Gout Chicken pox
== END 2025-03-26 13:40 | disposition home or self-care (01) ==
LOC: HO.HOSX 13:39
DX: S61.001D Unspecified open wound of right thumb without damage to nail, subsequent encounter (principal); W26.0XXD Contact with knife, subsequent encounter
CPT/HCPCS: 73130

== ENCOUNTER 2025-03-26 13:46 | Outpatient (AMB) | payer BC, SELFPAY ==
--- NOTE | 2025-03-26 14:16 | A.OFFVIS_ITS ---
Vital Signs 03/26/25 14:23 Height 5 ft 10 in Weight 187 lb BMI 26.8 Handedness Left Intake Visit Reasons: ED f/u RT thumb avulsion Intake Note: Carlos Manuel is a 44-year-old left hand dominant man who presents to office today for an emergency department follow up, DOI: 03/21/25. Per emergency department reports this patient cut his the tip of his right hand thumb with a kitchen knife while preparing his lunch. Patient expresses today in office that he went back to the ED on 03/23/25 and when he returned he told them he had an increase in pain. SAys thy told him the first time his dressing was too tight and he expresses he did not loosen it because he assumed they did this to ensure his bleeding stopped. He states he is having continued swelling and pain with usage of his hand. He types at work and tries to not to use his right hand or right thumb however he says he can not completely stop use of the right hand so after about an hour of working he has new swelling. 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 He has not been able to remove the Xeroform the ED placed on his wound, says he has been afraid to rip it off and do more damage. He is currently taking antibiotics prescribed from the ED. He says his right thumb is hot to touch. He has numbness from at the distal end of the right thumb, feels the tip of the finger feels heavy. Allergies No Known Allergies Allergy (Verified 03/26/25 14:24) HPI HPI ED f/u RT thumb avulsion: Details: Carlos Manuel is a 44-year-old left hand dominant man who presents to office today for an emergency department follow up, DOI: 03/21/25. Per emergency department reports this patient cut his the tip of his right hand thumb with a kitchen knife while preparing his lunch. Patient expresses today in office that he went back to the ED on 03/23/25 and when he returned he told them he had an increase in pain. SAys thy told him the first time his dressing was too tight and he expresses he did not loosen it because he assumed they did this to ensure his bleeding stopped. He states he is having continued swelling and pain with usage of his hand. He types at work and tries to not to use his right hand or right thumb however he says he can not completely stop use of the right hand so after about an hour of working he has new swelling. 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 He has not been able to remove the Xeroform the ED placed on his wound, says he has been afraid to rip it off and do more damage. He is currently taking antibiotics prescribed from the ED. He says his right thumb is hot to touch. He has numbness from at the distal end of the right thumb, feels the tip of the finger feels heavy. [facility] Medical History Hypertriglyceridemia Elevated blood pressure reading Encounter to establish care Septic olecranon bursitis of left elbow Surgical History No pertinent past surgical history Family History Mother Hypertension Father Hypertension Diabetes Brother No problems noted. Sister No problems noted. Brother No problems noted. Son Crohn disease Son No problems noted. 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 Neuro: Normal sensation of the tips of all digits of the right hand at this time Vascular: Cap refill brisk Pain: Tenderness to palpation about the laceration site on distal aspect of the right thumb No pain with range of motion of the right thumb ROM: Patient is able to flex and extend all digits of the right hand fully and without difficulty Skin: There is noted to be an approximately 1 cm in diameter skin avulsion noted on the most distal aspect of the right thumb No evidence of infection There appears to be some granulation tissue growth in his area General: No ecchymosis, erythema, or evidence of infection. Psych: Appears grossly normal Affect normal Attitude cooperative Results Reviewed Results Reviewed: X-rays obtained in the office today and independently reviewed by me, Nils Vargas PA-C, demonstrate no fracture or acute bony abnormality of the right thumb. Assessment & Plan Assessment & Plan (1) Avulsion of skin of right thumb: Code(s): S61.001A - Unspecified open wound of right thumb without damage to nail, initial encounter Category: Medical Plan 1. Skin avulsion of right thumb Date of injury 03/21/2025 Patient appears to be recovering well from his injury Patient is educated about the typical recovery course Patient is educated on daily dressing changes Augmentin refilled for a further 5 days Patient is educated that I do not feel he will require any further antibiotics beyond this, as he is demonstrating no signs or symptoms of infection Patient should keep the area clean and dry until next follow-up Patient understands this in his amenable to this plan Follow-up in 1 week for wound check, sooner with any acute concerns Orders: Orders XR hand RT min 3V 03/26/25 M79.641 - Pain in right hand Medications: Refilled amoxicillin-pot clavulanate 875-125 mg 1 tab PO BID 10 tabs 0RF 5 days Coding Level of Care Code New Pt Level 3 (34525) Diagnoses Avulsion of skin of right thumb S61.001A
[2025-03-26 14:23] VITALS: BMI 26.8
== END 2025-03-26 15:24 | disposition home or self-care (01) ==
LOC: HO.HOS 13:47
PROVIDERS: PCP Internal Medicine
DX: S61.001A Unspecified open wound of right thumb without damage to nail, initial encounter (principal)
CPT/HCPCS: 99203

== ENCOUNTER → 2025-03-26 14:10 | Outpatient (BNV) | payer BC, SELFPAY | PROVIDERS: Visit Provider Radiology Diagnostic Radiology | DX: M79.641 Pain in right hand (principal) | CPT/HCPCS: 73130 ==

== ENCOUNTER 2025-04-02 10:14 | Outpatient (AMB) | payer BC, SELFPAY ==
--- NOTE | 2025-04-02 10:29 | A.OFFVIS_ITS ---
Vital Signs 04/02/25 10:33 Height 5 ft 10 in Weight 187 lb BMI 26.8 Intake Visit Reasons: OV:Right Thumb Avulsion Fracture, DOI: 03/21/25 Intake Note: Carlos Manuel is a 44-year-old left hand dominant male who presents today for a Wound Check status post Right Thumb Avulsion Fracture, DOI: 03/21/25. He was last seen on 03/26/25 where patient was advised to keep wound clean and dry; Antibiotics were refilled. Patient reports today he has one more day left. He shares his pain has improved but he still having some tingling. He takes Ibuprofen PRN with relief. Allergies No Known Allergies Allergy (Verified 04/02/25 10:33) HPI HPI OV:Right Thumb Avulsion Fracture, DOI: 03/21/25: Details: Carlos Manuel is a 44-year-old left hand dominant male who presents today for a Wound Check status post Right Thumb Avulsion, DOI: 03/21/25. He was last seen on 03/26/25 where patient was advised to keep wound clean and dry; Antibiotics were refilled. Patient reports today he has one more day left. He shares his pain has improved but he still having some tingling. He takes Ibuprofen PRN with relief. [facility] Medical History Hypertriglyceridemia Elevated blood pressure reading Encounter to establish care Septic olecranon bursitis of left elbow Surgical History No pertinent past surgical history Family History Mother Hypertension Father Hypertension Diabetes Brother No problems noted. Sister No problems noted. Brother No problems noted. Son Crohn disease Son No problems noted. 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 Neuro: Patient does report very very mild tingling about the avulsion area of the right thumb, normal sensation in all other areas of the right hand Vascular: Cap refill brisk Pain: Very minimal Tenderness to palpation about the laceration site on distal aspect of the right thumb No pain with range of motion of the right thumb ROM: Patient is able to flex and extend all digits of the right hand fully and without difficulty Skin: There is noted to be an approximately 1 cm in diameter skin avulsion noted on the most distal aspect of the right thumb There does appear to be some new skin growth and granulation tissue growing in the area of the skin avulsion of the right thumb No evidence of infection There appears to be some granulation tissue growth in his area General: No ecchymosis, erythema, or evidence of infection. Psych: Appears grossly normal Affect normal Attitude cooperative Assessment & Plan Assessment & Plan (1) Avulsion of skin of right thumb: Code(s): S61.001A - Unspecified open wound of right thumb without damage to nail, initial encounter Category: Medical Plan 1. Skin avulsion of right thumb Date of injury 03/21/2025 Patient appears to be recovering well from his injury Patient is educated about the typical recovery course Patient is educated on daily dressing changes while out and about, I do not feel he requires any dressings at home, may leave open to air with a little bit of antibiotic ointment while at home Patient is educated that I do not feel he will require any further antibiotics beyond this, as he is demonstrating no signs or symptoms of infection Patient may wash the wound site with soap and water in the sink of the shower, no under water for a further 2 weeks Patient understands this in his amenable to this plan Follow-up as needed with any acute concerns Coding Level of Care Code Est Pt Level 3 (94092) Diagnoses Avulsion of skin of right thumb S61.001A
[2025-04-02 10:33] VITALS: BMI 26.8
--- OUTSIDE RECORDS SUMMARY | 2025-04-02 11:30 | XMS_ITS | Patient Health Record ---
Author Organization [facility] Address [address] [place] [address] Care Team Providers Care Consumer Marketing Specialist Name Role Phone Charito Monte Primary Care Provider Terence diaz Rohini Aldridge Unavailable [phone] Allergies No Known Allergies Results Component Value [...] Status Risk Notes Problem Acquired hallux valgus (13066883) Hallux valgus (acquired), left foot (M20.12) Active confirmed Problem Acquired hallux valgus (03511297) Hallux valgus (acquired), right foot (M20.11) Active confirmed Problem Arthritis (1116284) Arthritis (M19.90) Active confirmed Vital Signs Height 5ft 10in in 05/11/2024 Weight 190 lbs 05/11/2024 BMI 27.26 kg/m2 05/11/2024 Encounters Encounter Location Date Provider Diagnosis [facility] [address] [address] 05/11/2024 Rohini Black Pain in left foot [...] of right foot M20.5X1 and Arthritis M19.90 [facility] [address] [address] 05/11/2024 Rohini Black Assessments Encounter Date Diagnosis [...] Insured Coverage Start Date Coverage End Date [facility] [id number] [place] [address] [phone] [id number] Rosalind Espinoza Spouse - patient is the spouse of the insured Medical (General) History Medical History History ICD Code Gout Chicken pox
== END 2025-04-02 11:15 | disposition home or self-care (01) ==
LOC: HO.HOS 10:15
DX: S61.001A Unspecified open wound of right thumb without damage to nail, initial encounter (principal)
CPT/HCPCS: 99213

== ENCOUNTER 2025-06-25 09:13 | Outpatient (AMB) | payer BC, SELFPAY ==
--- NOTE | 2025-06-25 09:18 | MHC.PC.OV ---
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 His past medical history is significant for gout, elevated fasting blood sugar, and hypercholesterolemia. In March 2025, he sustained a right thumb avulsion fracture, for which he was seen by orthopedics and received wound care. He reports the bandage was applied too tightly, which he believes caused a fracture. Blood work from February 2025 revealed a normal blood count, electrolytes, renal function, hemoglobin A1c, and liver function. His blood sugar was mildly elevated at 118 mg/dL, cholesterol was elevated with an LDL of 133 mg/dL, B12 was high, and uric acid was 5.6 mg/dL. The patient monitors his blood pressure at home and reports morning readings around 145/90 mmHg. He has reduced his caffeine and salt intake but does not currently have a regular exercise routine. He reports having a stressful job and can feel anxiety. Health Maintenance The patient confirmed he is up to date on his vaccines, including the flu and tetanus shots. Continued lifestyle modifications, including diet and initiating an exercise program, were recommended. 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 - Diet: He has reduced his intake of caffeine and salt. - Substance use: He does not drink sodas. - Exercise: He acknowledges that he needs to exercise but has not yet started. Results - Labs (from February): - CBC: Normal - Electrolytes: Normal - Renal function: Normal - Blood sugar: 118 mg/dL - Hemoglobin A1c: Normal - Liver function: Good - LDL cholesterol: 133 mg/dL - Vitamin B12: High - Folic acid: Normal - Thyroid function: Normal - Uric acid: 5.6 mg/dL [facility] Medical History (Updated 06/25/25 @ 09:55 by Charito Monte MD) Blood pressure elevated without history of HTN Hypertriglyceridemia Elevated blood pressure reading Encounter to establish care Septic olecranon bursitis of left elbow Surgical History No pertinent past surgical history Family History Mother Hypertension Father Hypertension Diabetes Brother No problems noted. Sister No problems noted. Brother No problems noted. Son Crohn disease Son No problems noted. 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 Cognitive needs: No Hearing needs: No Vision needs: Yes Questionnaire Thrive Questionnaire Date Thrive assessed: 02/23/25 I am a: Patient What is your living situation today?: I have a steady place to live Within the past 12 months, did the food you bought not last and you didn't have the money to get more?: Never true Within the past 12 months, did you worry whether your food would run out before you got money to buy more?: Never true Do you have trouble paying for medicines?: No Do you have trouble getting transportation to medical appointments?: No Do you have trouble paying your heating and electricity bill?: No Do you have trouble taking care of your child, family member or friend?: No Do you have trouble with day-to-day activities such as bathing, preparing meals, shopping, managing finances, etc.?: No Are you currently unemployed and looking for a job?: No Are you interested in more education?: Yes Currently or been in a relationship where the following occur: No concerns reported THRIVE Score: 0 TOMMY-7 AMB Questionnaire TOMMY-7 Date TOMMY - 7 assessed: 03/02/25 Source: Developed by Drs. Cesar Walker, Roopa Eid, Abraham Ocampo and colleagues, with an educational paula from [employer] Review of Systems Narrative Review of Systems - Constitutional: Reports feeling very good . - Musculoskeletal: Reports his right thumb is better after a previous injury, though a small piece is missing. - Psychiatric: Reports feeling stress and anxiety related to his job. Physical exam (Primary Care) Vital Signs: Last Vital Signs Temp 97.1 F 06/25/25 09:19 Pulse 85 06/25/25 09:19 BP 138/76 06/25/25 09:19 Pulse Ox 99 06/25/25 09:19 Oxygen Delivery Method Room Air 06/25/25 09:19 BMI result Body Mass Index 26.8 Tobacco/Smoking Status: Tobacco use Status Tobacco use date assessed 06/25/25 06/25/25 09:19 Patient Tobacco Use Status Former Tobacco user 06/25/25 09:18 Tobacco use type Cigarette 06/25/25 09:18 e-Cigarette/Vaping Use Never Used 06/25/25 09:18 Thrive Assessment: Date of Thrive Assessment Date Thrive assessed 02/23/25 06/25/25 09:18 Currently or been in a relationship where the following occur: No concerns reported Narrative Physical Exam - Vitals: Blood pressure in clinic was noted to be good. - Cardiovascular: Heart auscultated. Const General: alert; No acute distress Eyes Conjunctivae: conjunctivae normal Resp Auscultation: clear to auscultation bilaterally Cardio Rate: regular rate Rhythm: regular rhythm GI Inspection: Yes normal to inspection Extrem General: Yes normal to inspection and No edema Coding Level of Care Code Est Pt Level 4 (43499) Add On Problem Visit Only Diagnoses Elevated fasting glucose R73.01 Overweight (BMI 25.0-29.9) E66.3 Gout M10.9 Avulsion fracture of right thumb S62.501A Hypertension I10 Assessment & Plan Assessment & Plan (1) Elevated fasting glucose: Code(s): R73.01 - Impaired fasting glucose Category: Medical Plan: Decrease the amount of carbohydrate intake, pasta, bread, rice and potatoes are all sugar and that is aside from all the sweet stuff, remember that fruits are good but they are Sweet also. (2) Overweight (BMI 25.0-29.9): Code(s): E66.3 - Overweight Category: Medical Plan: Diet and exercise (3) Gout: Comment: stable with diet Code(s): M10.9 - Gout, unspecified Category: Medical Plan: Low purine diet keep well hydrated continue with allopurinol (4) Avulsion fracture of right thumb: Code(s): S62.501A - Fracture of unspecified phalanx of right thumb, initial encounter for closed fracture Category: Medical Plan: Resolved (5) Hypertension: Code(s): I10 - Essential (primary) hypertension Category: Medical Plan: Start blood pressure medication. Decrease salt intake and exercise Plan Plan Patient was informed and verbally consented to the use of an ambient scribe for clinic note documentation during this visit. 1. Hypertension The patient's home blood pressure readings are consistently around 145/90 mmHg, which is considered stage 2 hypertension. Despite his hesitation, he has agreed to start medication to lower his blood pressure. He will be started on a low dose of lisinopril once daily. The patient was educated that a dry, nagging cough can be a side effect and to report it if it occurs. He will follow up in three months, with fasting blood work to be completed in one to two months and again a week prior to the visit. He was advised to send a message if his blood pressure remains high after one month on the new medication. 2. Gout The patient has a history of gout and his recent uric acid level was good at 5.6 mg/dL. He will continue taking allopurinol and is advised to maintain a low purine diet and adequate hydration. 3. Hypercholesterolemia His recent lab work showed an elevated LDL of 133 mg/dL. Diet and exercise will continue to be encouraged for management. Discussion Notes I explained to the patient that his home blood pressure readings of 145/90 mmHg are consistent with stage 2 hypertension and require treatment. After discussing the risks of untreated high blood pressure, he agreed to start medication. I have prescribed a low starting dose of lisinopril and educated him on the potential side effect of a dry, nagging cough, which would necessitate a change in medication. I advised him to monitor his blood pressure and to contact me in a month if it remains high, as we may need to adjust the dose. We scheduled follow-up labs in 1-2 months and a return visit in three months. We also reviewed his good uric acid level and the continued need for allopurinol and a low purine diet for his gout. Patient Instructions - Start taking lisinopril once a day for your high blood pressure. - If you develop a new dry cough that doesn't go away, please let me know as this can be a side effect of the medication. - Continue to check your blood pressure at home. If it is still high after one month, please send a message. - Continue taking your allopurinol for gout. - Continue your efforts with a healthy diet, including low salt and plenty of water. - Try to start a regular exercise routine. - Please get fasting blood work done in about 1-2 months, and again one week before your next appointment. - Your next follow-up appointment will be in about three months. Orders: Orders Basic Metabolic Panel Fasting 2 Months I10 - Essential (primary) hypertension Hemoglobin A1c 2 Months R73.01 - Impaired fasting glucose Lipid Panel 2 Months E78.00 - Pure hypercholesterolemia, unspecified, R73.01 - Impaired fasting glucose Uric Acid 2 Months M10.9 - Gout, unspecified Medications: New lisinopril 5 mg PO DAILY 30 tabs 3RF I10 - Essential (primary) hypertension
[2025-06-25 09:19] VITALS: BP 138/76; PULSE 85; TEMP 36.2; O2SAT 99; BMI 26.8
--- OUTSIDE RECORDS SUMMARY | 2025-06-25 09:45 | XMS_ITS | Patient Health Record ---
Author Organization [facility] Address [address] [place] [address] Care Team Providers Care Barge Master Name Role Phone Charito Monte Primary Care Provider Terence AldridgeRohini Unavailable [phone] Allergies No Known Allergies Reason For Referral No Information Medications Medication [...] Status Risk Notes Problem Acquired hallux valgus (82115279) Hallux valgus (acquired), left foot (M20.12) Active confirmed Problem Acquired hallux valgus (98793703) Hallux valgus (acquired), right foot (M20.11) Active confirmed Problem Arthritis (2950698) Arthritis (M19.90) Active confirmed Plan Of Treatment No Information Insurance Providers Payer Name Payer Address Payer Phone Subscriber Number Group Number Insured Name Patient Relationship to Insured Coverage Start Date Coverage End Date [facility] Others [address] [place] [address] [phone] [id number] Alexis, Rosalind Spouse - patient is the spouse of the insured Medical (General) History Medical History History ICD Code Gout Chicken pox
== END 2025-06-25 10:20 | disposition home or self-care (01) ==
LOC: HO.HMCH 09:14
PROVIDERS: PCP Internal Medicine; Visit Provider Internal Medicine
DX: R73.01 Impaired fasting glucose (principal); E66.3 Overweight; M10.9 Gout, unspecified; S62.501A Fracture of unspecified phalanx of right thumb, initial encounter for closed fracture; I10 Essential (primary) hypertension